=== PATIENT | male | born 2000 | race Two or more races ===

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

== ENCOUNTER 2021-02-26 10:09 | Emergency (ER) | payer MEDICAID, OTHER ==
[~2021-02-26] VITALS: Ht 167.6 cm; Wt 59.0 kg
[2021-02-26 10:38] VITALS: BP 106/55
[2021-02-26] MEDS ORDERED: IBUPROFEN 600 MG TAB PO ONE (11:00)
[2021-02-26] MEDS ORDERED: IBUP600T27 PO (11:03)
== END 2021-02-26 11:14 | disposition home or self-care (01) ==
LOC: ER 10:09
DX: S93.401A Sprain of unspecified ligament of right ankle, initial encounter (principal); Z79.1 Long term (current) use of non-steroidal anti-inflammatories (NSAID); V00.131A Fall from skateboard, initial encounter; Y93.51 Activity, roller skating (inline) and skateboarding; Y92.89 Other specified places as the place of occurrence of the external cause; Y99.8 Other external cause status
CPT/HCPCS: 73610

== ENCOUNTER 2023-07-10 09:41 | Emergency (ER) | payer SELFPAY ==
[~2023-07-10] VITALS: Ht 165.1 cm; Wt 66.2 kg
[~2023-07-10 09:41] MED LIST: IBUP-1454 PO
[2023-07-10 10:11] LABS: Urine Bacteria None Seen /hpf (None Seen)
[2023-07-10 10:14] LABS: Urine Blood Negative /uL (Negative); Urine Clarity Clear (Clear); Urine Protein, UAD Negative (Negative); Urine Specific Gravity 1.001 (1.001-1.035); Urine Urobilinogen Normal (Negative); Urine WBC <1 /hpf (0 - 3)
[2023-07-10 10:17] LABS: Urine Color Yellow (Yellow)
[2023-07-10 10:25] LABS: Amphetamine Screen, Urine Neg (NEGATIVE); Barbiturate Scree,Urine Neg (NEGATIVE); Benzodiazephine Screen, Urine Neg (NEGATIVE); Cannabinoid Screen, Urine Neg (NEGATIVE); Cocaine Screen, Urine Neg (NEGATIVE); Opiate Scree,Urine Neg (NEGATIVE); Phencyclidine Screen, Urine Neg (NEGATIVE)
[2023-07-10 11:14] LABS: Basophils # (auto) 0 10 ^3/uL (0-0.2); Eosinophils # (auto) 0.1 10 ^3/uL (0-0.8); Eosinophils % (auto) 2.3 % (0.0-7.0); Hematocrit 47.2 % (41.0-53.0); Hemoglobin 15.7 g/dL (13.5-17.5); Lymphocytes # (auto) 1.9 10 ^3/uL (0.4-5.4); Lymphocytes % (auto) 37.7 % (10.0-50.0); Mean Corpuscular Hemoglobin 28.9 pg (28.0-32.0); Mean Corpuscular Hgb Conc. 33.4 g/dL (32.0-36.0); Mean Corpuscular Volume 86.6 fL (80.0-100.0); Monocytes # (auto) 0.5 10 ^3/uL (0-1.3); Monocytes % (auto) 9.4 % (0.0-12.0); Neutrophils # (auto) 2.5 10 ^3/uL (1.6-8.6); Neutrophils % (auto) 49.6 % (37.0-80.0); Nucleated Red Blood Cells % 0.2 %; Red Blood Cells 5.45 10^6/uL (4.5-5.90)
[2023-07-10 11:40] LABS: Albumin 5.1 g/dL (3.2-4.8); Alkaline Phosphatase 75 U/L (46-116); Anion Gap 8 (5-15); Aspartate Aminotransferase 15 U/L (13-40); Bilirubin, Total 0.7 mg/dL (0.2-1.0); Blood Alcohol < 3.0 mg/dL (<10); Calcium 10.1 mg/dL (8.5-10.1); Carbon Dioxide 27 mmol/L (20-30); Chloride 104 mmol/L (98-107); Glucose 124 mg/dL (74-106); Potassium 3.5 mmol/L (3.5-5.1); Sodium 139 mmol/L (136-145)
[2023-07-10 11:41] LABS: Total Protein 7.4 g/dL (5.7-8.2)
[2023-07-10 11:48] LABS: Alanine Aminotransferase < 9 U/L (7-40); BUN/Creatinine Ratio 5.1 (10.0-20.0); Blood Urea Nitrogen < 5 mg/dL (9-23)
[2023-07-10] MEDS: IOHEXOL 300 MG/ML 100ML BOTTLE IJ ONE (13:40)
[2023-07-10] MEDS: METOCLOPRAMIDE HCL 10 MG TAB PO ONE (14:30)
[2023-07-10] MEDS: levoFLOXacin 500 MG TAB PO ONE (14:30)
[2023-07-10] MEDS: metroNIDAZOLE 500 MG TAB PO ONE (14:30)
[2023-07-10] MEDS ORDERED: PANT40TA2 PO (14:31)
[2023-07-10] MEDS ORDERED: METO-281 PO (14:31)
[2023-07-10] MEDS ORDERED: CIPR-173 PO (14:31)
[2023-07-10] MEDS ORDERED: METR-344 PO (14:31)
[2023-07-10 16:34] VITALS: BP 107/61; PULSE 69; RESP 18; TEMP 98.7; O2SAT 100
[2023-07-10 17:59] LABS: Magnesium 2.2 mg/dL (1.6-2.6)
[2023-07-10 18:00] LABS: Lipase 43 U/L (12-53)
== END 2023-07-10 16:37 | disposition home or self-care (01) ==
LOC: ER 09:41
DX: K52.9 Noninfective gastroenteritis and colitis, unspecified (principal); Z87.891 Personal history of nicotine dependence; Z79.899 Other long term (current) drug therapy
CPT/HCPCS: 36415; 71045; 74177; 80053; 80307; 80320; 81001; 83690; 83735; 85025; 99285; J8597; Q9967

== ENCOUNTER 2023-12-15 18:40 | Inpatient (IN) | payer MEDICAID ==
[~2023-12-15] VITALS: Ht 165.1 cm; Wt 65.0 kg
[~2023-12-15 18:40] MED LIST changes: +CIPR-173 PO; +METO-281 PO; +METR-344 PO; +PANT40TA2 PO
[2023-12-15 20:00] LABS: Urine Bacteria None Seen /hpf (None Seen)
[2023-12-15 20:45] LABS: Basophils # (auto) 0 10 ^3/uL (0-0.2); Basophils % (auto) 0.5 % (0.0-2.0); Eosinophils # (auto) 0.1 10 ^3/uL (0-0.8); Eosinophils % (auto) 0.9 % (0.0-7.0); Hematocrit 46.8 % (41.0-53.0); Hemoglobin 15.6 g/dL (13.5-17.5); Lymphocytes # (auto) 1.1 10 ^3/uL (0.4-5.4); Lymphocytes % (auto) 14.9 % (10.0-50.0); Mean Corpuscular Hemoglobin 28.7 pg (28.0-32.0); Mean Corpuscular Hgb Conc. 33.4 g/dL (32.0-36.0); Monocytes # (auto) 0.9 10 ^3/uL (0-1.3); Monocytes % (auto) 12.4 % (0.0-12.0); Neutrophils # (auto) 5.3 10 ^3/uL (1.6-8.6); Neutrophils % (auto) 71.3 % (37.0-80.0); Platelet Count (auto) 241 10^3/uL (140-450); Red Blood Cells 5.44 10^6/uL (4.5-5.90); Red Cell Distribution Width 12.7 % (11.8-14.3); White Blood Cell 7.5 10^3/uL (4.4-10.8)
[2023-12-15 20:50] LABS: Urine Blood Negative /uL (Negative); Urine Clarity Clear (Clear); Urine Color Colorless (Yellow); Urine Protein, UAD Negative (Negative); Urine Specific Gravity 1.001 (1.001-1.035); Urine Urobilinogen Normal (Negative); Urine WBC <1 /hpf (0 - 3); Urine pH 6.5 (5.0-9.0)
[2023-12-15 21:04] LABS: Alanine Aminotransferase 16 U/L (7-40); Albumin 4.9 g/dL (3.2-4.8); Alkaline Phosphatase 94 U/L (46-116); Anion Gap 7 (5-15); Aspartate Aminotransferase 13 U/L (13-40); Calcium 9.8 mg/dL (8.7-10.4); Carbon Dioxide 26 mmol/L (20-31); Chloride 107 mmol/L (98-107); Glucose 90 mg/dL (74-106); Lipase 39 U/L (12-53); Potassium 3.7 mmol/L (3.5-5.1); Sodium 140 mmol/L (136-145)
[2023-12-15 21:05] LABS: Bilirubin, Total 0.6 mg/dL (0.2-1.0); Total Protein 7.4 g/dL (5.7-8.2)
[2023-12-15 21:07] LABS: BUN/Creatinine Ratio 4.5 (10.0-20.0); Blood Urea Nitrogen < 5 mg/dL (9-23)
[2023-12-15] MEDS: KETOROLAC TROMETH 30 MG/ML 1ML VIAL IV ONE (22:15)
[2023-12-15] MEDS: SULFAMETH-TRIMETH 80/16MG-ML 10 ML in D5W 5% 250 ML IV ONE (22:15)
[2023-12-15] MEDS ORDERED: HYDROcodone-ACET 5/325MG TAB PO PRN (23:30)
[2023-12-15] MEDS ORDERED: MORPHINE SULFATE INJ 2 MG/ml SYRG IV PRN (23:30)
[2023-12-15] MEDS ORDERED: ACETAMINOPHEN 325 MG TAB PO PRN (23:30)
[2023-12-15] MEDS ORDERED: ONDANSETRON HCL 4 MG/2 ML VIAL IV PRN (23:30)
[2023-12-16] MEDS: methylPREDNISolone SOD SUCC 125 MG/2 ML VL IV ONE (00:45)
[2023-12-16] MEDS: cefTRIAXone 1GM/50ML D5W 50 ML IV ONE (00:46)
[2023-12-16] MEDS: PANTOPRAZOLE 40 MG/10 ML VIAL INJ IV ONE (00:48)
[2023-12-16] MEDS: metroNIDAZOLE 500MG/100ML 100 ML IV ONE (01:19)
[2023-12-16] MEDS: SODIUM CHLORIDE 0.9% 1,000 ML IV ONE (01:33)
[2023-12-16 01:50] VITALS: PULSE 69; RESP 17; O2SAT 98
[2023-12-16 05:35] LABS: COVID19 ANTIGEN SOFIA FIA NEGATIVE (NEGATIVE)
[2023-12-16 06:22] LABS: Basophils # (auto) 0 10 ^3/uL (0-0.2); Basophils % (auto) 0.1 % (0.0-2.0); Eosinophils # (auto) 0 10 ^3/uL (0-0.8); Eosinophils % (auto) 0.1 % (0.0-7.0); Hematocrit 46.9 % (41.0-53.0); Hemoglobin 15.9 g/dL (13.5-17.5); Lymphocytes # (auto) 0.6 10 ^3/uL (0.4-5.4); Lymphocytes % (auto) 7.3 % (10.0-50.0); Mean Corpuscular Hemoglobin 29.2 pg (28.0-32.0); Monocytes # (auto) 0.2 10 ^3/uL (0-1.3); Monocytes % (auto) 1.8 % (0.0-12.0); Neutrophils # (auto) 7.9 10 ^3/uL (1.6-8.6); Neutrophils % (auto) 90.7 % (37.0-80.0); Platelet Count (auto) 229 10^3/uL (140-450); Red Blood Cells 5.45 10^6/uL (4.5-5.90); Red Cell Distribution Width 12.6 % (11.8-14.3); White Blood Cell 8.7 10^3/uL (4.4-10.8)
[2023-12-16 06:30] LABS: Chloride 105 mmol/L (98-107); Potassium 4.3 mmol/L (3.5-5.1); Sodium 139 mmol/L (136-145)
[2023-12-16 06:31] LABS: Anion Gap 9 (5-15); Carbon Dioxide 25 mmol/L (20-31)
[2023-12-16 06:32] LABS: Calcium 10.3 mg/dL (8.7-10.4)
[2023-12-16] MEDS: metroNIDAZOLE 500MG/100ML 100 ML IV SCH (06:34)
[2023-12-16 06:36] LABS: Glucose 120 mg/dL (74-106)
[2023-12-16 06:37] LABS: BUN/Creatinine Ratio 7.1 (10.0-20.0); Blood Urea Nitrogen 7 mg/dL (9-23); Magnesium 2.1 mg/dL (1.6-2.6)
[2023-12-16 08:25] VITALS: BP 94/52; PULSE 74; RESP 16; TEMP 97.9; O2SAT 99
[2023-12-16] MEDS: PANTOPRAZOLE 40 MG/10 ML VIAL INJ IV SCH (11:12)
[2023-12-16 11:59] LABS: Free T3 3.15 pg/mL (2.3-4.2); Free T4 (Free Thyroxine) 1.41 ng/dL (0.89-1.76)
[2023-12-16] MEDS: CYANOCOBALAMIN (B-12) 1000 MCG/1 ML VIAL IM ONE ×2 (12:45→13:06)
[2023-12-16 13:00] VITALS: BP 110/55; PULSE 68; RESP 15; TEMP 97.8; O2SAT 96
[2023-12-16] MEDS: ERGOCALCIFEROL 50,000 UNIT(1.25MG) CAP PO SCH (13:07)
[2023-12-16 16:55] VITALS: BP 110/74; PULSE 76; RESP 17; TEMP 97.7; O2SAT 98
[2023-12-16 20:00] VITALS: PULSE 68; RESP 18; O2SAT 97
[2023-12-16 21:00] VITALS: BP 99/66; PULSE 68; RESP 18; TEMP 97.9; O2SAT 97
[2023-12-16] MEDS: cefTRIAXone 1GM/50ML D5W 50 ML IV SCH (21:00)
[2023-12-17 01:00] VITALS: BP 107/70; PULSE 63; RESP 18; TEMP 98; O2SAT 98
[2023-12-17 01:54] LABS: Amphetamine Screen, Urine Neg (NEGATIVE); Barbiturate Scree,Urine Neg (NEGATIVE); Benzodiazephine Screen, Urine Neg (NEGATIVE); Cannabinoid Screen, Urine Neg (NEGATIVE); Cocaine Screen, Urine Neg (NEGATIVE); Opiate Scree,Urine Neg (NEGATIVE); Phencyclidine Screen, Urine Neg (NEGATIVE)
[2023-12-17 05:00] VITALS: BP 109/73; PULSE 65; RESP 18; TEMP 98; O2SAT 97
[2023-12-17 08:01] LABS: Basophils # (auto) 0 10 ^3/uL (0-0.2); Basophils % (auto) 0.6 % (0.0-2.0); Eosinophils # (auto) 0 10 ^3/uL (0-0.8); Eosinophils % (auto) 0.3 % (0.0-7.0); Hematocrit 41.7 % (41.0-53.0); Hemoglobin 14.2 g/dL (13.5-17.5); Lymphocytes # (auto) 1.8 10 ^3/uL (0.4-5.4); Mean Corpuscular Hemoglobin 29.2 pg (28.0-32.0); Mean Corpuscular Hgb Conc. 34.1 g/dL (32.0-36.0); Mean Corpuscular Volume 85.7 fL (80.0-100.0); Monocytes # (auto) 0.7 10 ^3/uL (0-1.3); Monocytes % (auto) 10.2 % (0.0-12.0); Neutrophils # (auto) 4.4 10 ^3/uL (1.6-8.6); Neutrophils % (auto) 62.9 % (37.0-80.0); Nucleated Red Blood Cells % 0.2 %; Platelet Count (auto) 225 10^3/uL (140-450); Red Blood Cells 4.86 10^6/uL (4.5-5.90); Red Cell Distribution Width 12.6 % (11.8-14.3); White Blood Cell 7.1 10^3/uL (4.4-10.8)
[2023-12-17 08:10] LABS: Anion Gap 6 (5-15); Carbon Dioxide 27 mmol/L (20-31); Chloride 108 mmol/L (98-107); Potassium 3.7 mmol/L (3.5-5.1); Sodium 141 mmol/L (136-145)
[2023-12-17 08:12] LABS: Calcium 9.5 mg/dL (8.7-10.4)
[2023-12-17 08:17] LABS: BUN/Creatinine Ratio 8.2 (10.0-20.0); Blood Urea Nitrogen 8 mg/dL (9-23); Glucose 96 mg/dL (74-106)
[2023-12-17 08:49] VITALS: BP 97/59; PULSE 63; RESP 15; TEMP 97.7; O2SAT 98
[2023-12-17] MEDS: CYANOCOBALAMIN (B-12) 1000 MCG/1 ML VIAL IM SCH (10:00)
[2023-12-17 13:00] VITALS: BP 101/66; PULSE 58; RESP 18; TEMP 98; O2SAT 93
[2023-12-17] MEDS ORDERED: METR-344 PO (16:10)
[2023-12-17] MEDS ORDERED: ERGO1CAP23 PO (16:10)
[2023-12-17] MEDS ORDERED: CYAN-17 PO (16:10)
[2023-12-17] MEDS ORDERED: CEPH250C PO (16:10)
[2023-12-20 13:07] LABS: Saccharomyces cerevisiae IgA <20.0 Units (0.0-24.9)
== END 2023-12-17 16:52 | disposition home or self-care (01) | DRG 248 ==
LOC: ER 18:43 → OVERFLOW 23:32 → CENTRAL 12-16 07:55
PROVIDERS: ADMIT Internal Medicine; ATTEND Internal Medicine
DX: A04.72 Enterocolitis due to Clostridium difficile, not specified as recurrent (principal); K50.00 Crohn's disease of small intestine without complications; E55.9 Vitamin D deficiency, unspecified; E86.0 Dehydration; Z20.822 Contact with and (suspected) exposure to COVID-19; Z83.3 Family history of diabetes mellitus; Z79.899 Other long term (current) drug therapy
CPT/HCPCS: 36415; 74176; 80048; 80053; 80307; 81001; 82270; 82306; 82607; 83036; 83690; 83735; 83986; 84439; 84443; 84481; 85025; 85048; 86256; 86671; 87045; 87426; 87427; 87493; G0378; J1885; J2470; J3490; J7060

== ENCOUNTER 2024-03-06 01:31 | Emergency (ER) | payer MEDICAID ==
[~2024-03-06] VITALS: Ht 157.5 cm; Wt 66.4 kg
[~2024-03-06 01:31] MED LIST changes: +CEPH250C PO; -CIPR-173 PO; +CYAN-17 PO; +ERGO1CAP23 PO; -IBUP-1454 PO; -METO-281 PO; -PANT40TA2 PO
[2024-03-06 01:43] VITALS: BP 125/61; PULSE 83; RESP 20; O2SAT 99
[2024-03-06 02:21] LABS: Urine Bacteria None Seen /hpf (None Seen); Urine WBC None Seen /hpf (0 - 3)
[2024-03-06 02:27] LABS: Urine Blood Negative /uL (Negative); Urine Clarity Clear (Clear); Urine Color Colorless (Yellow); Urine Protein, UAD Negative (Negative); Urine Specific Gravity 1.002 (1.001-1.035); Urine Squamous Epithelial Cell None Seen /hpf (<5); Urine Urobilinogen Normal (Negative)
[2024-03-06 02:42] LABS: Basophils # (auto) 0.1 10 ^3/uL (0-0.2); Basophils % (auto) 1.1 % (0.0-2.0); Eosinophils # (auto) 0.2 10 ^3/uL (0-0.8); Eosinophils % (auto) 2.6 % (0.0-7.0); Hemoglobin 16.3 g/dL (13.5-17.5); Lymphocytes # (auto) 2.6 10 ^3/uL (0.4-5.4); Lymphocytes % (auto) 34.6 % (10.0-50.0); Mean Corpuscular Hemoglobin 28.5 pg (28.0-32.0); Mean Corpuscular Hgb Conc. 33.3 g/dL (32.0-36.0); Mean Corpuscular Volume 85.4 fL (80.0-100.0); Monocytes # (auto) 0.6 10 ^3/uL (0-1.3); Monocytes % (auto) 8.1 % (0.0-12.0); Neutrophils % (auto) 53.6 % (37.0-80.0); Nucleated Red Blood Cells % 0.1 %; Platelet Count (auto) 322 10^3/uL (140-450); Red Blood Cells 5.74 10^6/uL (4.5-5.90); Red Cell Distribution Width 12.1 % (11.8-14.3); White Blood Cell 7.5 10^3/uL (4.4-10.8)
[2024-03-06 02:44] LABS: Alanine Aminotransferase 29 U/L (7-40); Alkaline Phosphatase 85 U/L (46-116); Anion Gap 8 (5-15); Aspartate Aminotransferase 19 U/L (13-40); BUN/Creatinine Ratio 5.8 (10.0-20.0); Bilirubin, Total 0.4 mg/dL (0.2-1.0); Calcium 10.3 mg/dL (8.7-10.4); Carbon Dioxide 28 mmol/L (20-31); Chloride 106 mmol/L (98-107); Glucose 94 mg/dL (74-106); Lipase 41 U/L (12-53); Potassium 3.8 mmol/L (3.5-5.1); Sodium 142 mmol/L (136-145); Total Protein 7.4 g/dL (5.7-8.2)
[2024-03-06] MEDS ORDERED: DICY20TA PO (03:00)
--- NOTE | 2024-03-06 03:00 | ED.PDOC ---
GI ASSESSMENT HPI Comments Patient complaining of right lower quadrant abdominal pain and nausea vomiting which started today. Patient reports a history of IBS. No new foods or medications. Denies any diarrhea no blood in his stool. Nothing makes it better, nothing makes it worse. No recent travel, no one else at home sick. Chief Complaint: Abdominal Pain Time Seen by MD: 01:47 Primary Care Provider: NONE Reviewed Notes: Nurses Notes Allergies: Coded Allergies: NO KNOWN ALLERGIES (Unverified , 07/23/12) Home Meds Active Scripts Metronidazole (Flagyl) 500 Mg Tab, 1 TAB PO TID for 5 Days, #15 TAB Prov:OCTAVIO ZAVALA 12/17/23 Cephalexin (KEFLEX CAPSULE) 250 Mg Cp, 1 CAP PO BID for 5 Days, #28 CAP Prov:OCTAVIO ZAVALA [facility] 12/17/23 Cyanocobalamin (B12) 1,000 Mcg Cap, 1000 MCG PO DAILY for 30 Days, #30 CAP 2 Refills Prov:OCTAVIO ZAVALA [facility] 12/17/23 Ergocalciferol (VITAMIN D 14393 UNIT) 50,000 [place], [address] UNIT PO Q7D for 90 Days, #12 CAP Prov:OCTAVIO ZAVALA [facility] 12/17/23 Information Source: Patient Mode of Arrival: Ambulatory Past Medical History PAST MEDICAL HISTORY: Denies Surgical History: Denies all surgeries Family History Family History: Reviewed,noncontributory to illness Social History Smoker: Non-Smoker Alcohol: Denies ETOH Use Drugs: Denies Drug Use Lives In: Home EENTM: denies: blurred vision, double vision, ear bleeding, ear discharge, ear drainage, ear pain, ear ringing, eye pain, eye redness, hearing loss, mouth pain, mouth swelling, nasal discharge, nose bleeding, nose congestion, nose pain, photophobia, tearing, throat pain, throat swelling, voice changes, others Respiratory: denies: cough, hemoptysis, orthopnea, SOB at rest, shortness of breath, SOB with excertion, stridor, wheezing, others Gastrointestinal: reports: abdominal pain, nausea, vomiting Genitourinary: denies: burning, dysuria, flank pain, frequency, hematuria, incontinence, penile discharge, penile sore, pain, testicle pain, testicle swelling, urgency, others Neurological: denies: dizziness, fainting, headache, left sided numbness, left sided weakness, numbness, paresthesia, pre-existing deficit, right sided numbness, right sided weakness, seizure, speech problems, tingling, tremors, weakness, others Musculoskeletal: denies: back pain, gout, joint pain, joint swelling, muscle pain, muscle stiffness, neck pain, others Integumetry: denies: bruises, change in color, change in hair/nails, dryness, laceration, lesions, lumps, rash, wounds, others Allergic/Immunocompromised: denies: Difficulty Healing, Frequent Infections, Hives, Itching, others Physical Exam General Appearance: No Apparent Distress, Normal HEENT: Normal ENT Inspection, Pharynx Normal, TMs Normal Neck: Full Range of Motion, Non-Tender, Normal, Normal Inspection Respiratory: Chest Non-Tender, Lungs Clear, No Accessory Muscle Use, No Respiratory Distress, Normal Breath Sounds Cardiovascular: No Edema, No JVD, No Murmur, No Gallop, Normal Peripheral Pulses, Regular Rate/Rhythm Breast Exam: Deferred Gastrointestinal: No Organomegaly, Normal Bowel Sounds, RLQ (Tender to palpation), Soft Genitalia: Deferred Pelvic: Deferred Rectal: Deferred Extremities: No calf tenderness, Normal capillary refill, Normal inspection, Normal range of motion, Non-tender, No pedal edema Musculoskeletal : Apperance: Normal Neurologic: Alert, safety investigator II-XII nml as Tested, No Motor Deficits, Normal Affect, Normal Mood, No Sensory Deficits Cerebellar Function: Normal Reflexes: Normal Skin: Dry, Normal Color, Warm Lymphatic: No Adenopathy Was a procedure done? Was a procedure done?: No GI differential Dx Differential Diagnosis: Appendicitis, Bowel Obstruction, Gastritis/PUD, Gastroenteritis X-Ray, Labs, Meds, VS Vital Signs Date Time Temp Pulse Resp B/P (MAP) Pulse Ox O2 Delivery O2 Flow Rate FiO2 03/06/24 01:43 97.7 83 20 125/61 (82) 99 Lab Test 03/06/24 02:15 03/06/24 01:47 Range/Units White Blood Count Pending Red Blood Count Pending Hemoglobin Pending Hematocrit Pending Mean Corpuscular Volume Pending Mean Corpuscular Hemoglobin Pending Mean Corpuscular Hemoglobin Concent Pending Red Cell Distribution Width Pending Platelet Count Pending Mean Platelet Volume Pending Neutrophils (%) (Auto) Pending Lymphocytes (%) (Auto) Pending Monocytes (%) (Auto) Pending Basophils (%) (Auto) Pending Neutrophils # (Auto) Pending Lymphocytes # (Auto) Pending Monocytes # (Auto) Pending Sodium Level Pending Potassium Level Pending Chloride Level Pending Carbon Dioxide Level Pending Anion Gap Pending Blood Urea Nitrogen Pending Creatinine Pending Glomerular Filtration Rate Calc Pending BUN/Creatinine Ratio Pending Serum Glucose Pending Calcium Level Pending Total Bilirubin Pending Aspartate Amino Transferase (AST) Pending Alanine Aminotransferase (ALT) Pending Alkaline Phosphatase Pending Total Protein Pending Albumin Pending Lipase Pending Urine Color Pending Urine Clarity Pending Urine pH Pending Urine Specific [place] Pending Urine Protein Pending Urine Ketones Pending Urine Blood Pending Urine Nitrite Pending Urine Bilirubin Pending Urine Urobilinogen Pending Urine Leukocyte Esterase Pending Urine RBC Pending Urine WBC Pending Urine Squamous Epithelial Cells Pending Urine Bacteria Pending Urine Glucose Pending X-Ray, Labs, Meds, VS Comment Imaging: X-rays and CT scans were reviewed and interpreted by this provider, imaging shows no fractures and no pathological disease. Pending radiology review. Laboratory: Labs reviewed and interpreted by this provider. No significant abnormalities noted. Patient has prior medical visits reviewed. Med reconciliation performed Vital signs reviewed Time of 1ST Reevaluation: 03:00 Reevaluation 1ST: Improved Patient Education/Counseling: Diagnosis, Treatment, Need For Follow Up (Follow up in the next 4-6 hours if symptoms worsen. Follow up in 24 hours if symptoms have not improved.) Family Education/Counseling: Diagnosis, Treatment Departure 1 Departure Time of Disposition: 02:59 Impression: Primary Impression: Colitis Disposition: 01 HOME / SELF CARE / HOMELESS Condition: Fair e-Prescriptions Dicyclomine Hcl (Dicyclomine Hcl) 20 Mg Tab 1 TAB PO TID PRN, #30 TAB 1 Refill Prov: ROSEMARY MILLER 03/06/24 Discharged With: Self Critical Care Note Critical Care Time?: No Stability Stability form required: No Heart Score Heart Score: Heart Score Response (Comments) Value History N/A 0 EKG N/A 0 Age N/A 0 Risk Factors N/A 0 Troponin N/A 0 Total 0 ROSEMARY MILLER Mar 06, 2024 03:00
[2024-03-06 03:07] LABS: Blood Urea Nitrogen 6 mg/dL (9-23)
--- NOTE | 2024-03-06 03:09 | DVH ---
Examination: ABPL CLINICAL INDICATION: RLQ pain COMPARISON: None. CONTRAST USED: None. TECHNIQUE: A plain CT study of the abdomen and pelvis is performed. The examination was performed w ith [address] scan done according to ALARA (As Low as Reasonably Achievable). Multiplana r reconstructions were obtained. FINDINGS: CT ABDOMEN: Lung Base: The evaluation of lung bases demonstrates no focal infiltrates or pleural effusion. Unenhanced Liver: Normal size liver with normal attenuation. No obvious focal lesion in liver. Ther e is no intrahepatic biliary radicle dilatation. Gallbladder appears unremarkable. No intraluminal pathology. The common bile duct is not dilated. Unenhanced Pancreas: The pancreas is normal in size and shape. No focal lesion is seen within. Th e peripancreatic fat-planes are normal. Unenhanced Spleen: The spleen is normal in size and does not show any focal abnormality. A 2.1 cm s plenule at the splenic hilum. Retroperitoneum: Both adrenal glands are normal in size and morphology in this unenhanced CT scan. There is no significant retroperitoneal lymphadenopathy. The kidneys are normal in size. No renal calculus or hydronephrosis. Perinephric spaces are clear. Vessels: Aorta, IVC and the mesenteric vessels cannot be commented in this unenhanced CT scan. Stomach and Bowel: The bowel loops are unremarkable. There is no ascites. Skeletal System: No acute osseous abnormality or focal osseous lesion. CT PELVIS: Appendix is visualized and appears unremarkable. Colon: Large bowel loops are moderately distended with fecal matter. Changes of constipation. No ev idence of diverticulosis or diverticulitis. No inflammatory bowel wall thickening. Bladder: The urinary bladder is unremarkable. Borderline prostatomegaly. Seminal vesicles appear un remarkable. No pelvic lymphadenopathy is identified. No abnormal fluid collection is seen. IMPRESSION: 1. No acute intra-abdominal pathology. No abdominal fat stranding or collection. 2. Appendix, terminal ileum and ileocecal junction appear unremarkable. Gallbladder and pancreas ap pear unremarkable. No evidence of renal or ureteric calculus or hydronephrosis. 3. Large bowel loops are distended with fecal matter. Changes of constipation. No evidence of dive rticulosis or diverticulitis or inflammatory bowel wall thickening. 4. Borderline prostatomegaly. No evidence of inguinal hernia. Electronically Signed 03/06/2024 03:08 Ashley Lau
== END 2024-03-06 05:38 | disposition home or self-care (01) ==
LOC: ER 01:31
DX: K52.9 Noninfective gastroenteritis and colitis, unspecified (principal)
CPT/HCPCS: 36415; 74176; 80053; 81001; 83690; 85025

== ENCOUNTER 2024-05-08 09:17 | Emergency (ER) | payer MEDICAID ==
[~2024-05-08] VITALS: Ht 165.1 cm; Wt 66.9 kg
[~2024-05-08 09:17] MED LIST changes: +DICY20TA PO
--- NOTE | 2024-05-08 10:09 | ED.PDOC ---
GI ASSESSMENT HPI Comments 24 year old male presents to the ED with a chief complaint of abdominal pain onset 1 week. Patient states he has been experiencing LLQ pain radiating to RLQ for the past week, noticed pain worsen today. Patient is also experiencing nausea. Denies any PMHx as well as chest pain, shortness of breath, vomiting, diarrhea, constipation, fever, chills, headache, blurry vision, dysuria. No other symptoms or other modifying factors present at this time. Chief Complaint: Abdominal Pain Time Seen by MD: 10:04 Primary Care Provider: Padmaja Armstrong Notes: Medications, Allergies Allergies: Coded Allergies: NO KNOWN ALLERGIES (Unverified , 07/23/12) Home Meds Active Scripts Pantoprazole Sodium Sesquihydr (Protonix) 40 Mg Tab, 40 MG PO DAILY for 5 Days, #5 TAB Prov:CHILO BURGESS MD 05/08/24 Dicyclomine Hcl (Dicyclomine Hcl) 20 Mg Tab, 1 TAB PO TID PRN, #30 TAB 1 Refill Prov:ROSEMARY MILLER 03/06/24 Metronidazole (Flagyl) 500 Mg Tab, 1 TAB PO TID for 5 Days, #15 TAB Prov:OCTAVIO ZAVALA 12/17/23 Cephalexin (KEFLEX CAPSULE) 250 Mg Cp, 1 CAP PO BID for 5 Days, #28 CAP Prov:OCTAVIO ZAVALA 12/17/23 Cyanocobalamin (B12) 1,000 Mcg Cap, 1000 MCG PO DAILY for 30 Days, #30 CAP 2 Refills Prov:OCTAVIO ZAVALA 12/17/23 Ergocalciferol (VITAMIN D 39721 UNIT) 50,[place], [address] UNIT PO Q7D for 90 Days, #12 CAP Prov:OCTAVIO ZAVALA 12/17/23 Information Source: Patient Mode of Arrival: Ambulatory Timing: Weeks Duration: Since onset Prehospital treatment: None Quality: Aching Vomitus: None Severity: Moderate Recent: None Recent Hx of: None Pain Location: RLQ, LLQ Modifying Factors: Nothing Associated sign and symptoms: Nausea, Abdominal Pain Past Medical History PAST MEDICAL HISTORY: Denies Surgical History: Denies all surgeries Family History Family History: Reviewed,noncontributory to illness Social History Smoker: Other Alcohol: Denies ETOH Use Drugs: Denies Drug Use Lives In: Home Constitutional: denies: chills, diaphoresis, fatigue, fever, malaise, sweats, weakness, others EENTM: denies: blurred vision, double vision, ear bleeding, ear discharge, ear drainage, ear pain, ear ringing, eye pain, eye redness, hearing loss, mouth pain, mouth swelling, nasal discharge, nose bleeding, nose congestion, nose pain, photophobia, tearing, throat pain, throat swelling, voice changes, others Respiratory: denies: cough, hemoptysis, orthopnea, SOB at rest, shortness of breath, SOB with excertion, stridor, wheezing, others Cardiovascular: denies: chest pain, dizzy spells, diaphoresis, Dyspnea on exertion, edema, irregular heart beat, left arm pain, lightheadedness, palpitations, PND, syncope, others Gastrointestinal: reports: abdominal pain; denies: abdomen distended, blood streaked bowels, constipated, diarrhea, dysphagia, difficulty swallowing, hematemesis, melena, nausea, poor appetite, poor fluid intake, rectal bleeding, rectal pain, vomiting, others Genitourinary: denies: burning, dysuria, flank pain, frequency, hematuria, incontinence, penile discharge, penile sore, pain, testicle pain, testicle swelling, urgency, others Neurological: denies: dizziness, fainting, headache, left sided numbness, left sided weakness, numbness, paresthesia, pre-existing deficit, right sided numbness, right sided weakness, seizure, speech problems, tingling, tremors, weakness, others Musculoskeletal: denies: back pain, gout, joint pain, joint swelling, muscle pain, muscle stiffness, neck pain, others Integumetry: denies: bruises, change in color, change in hair/nails, dryness, laceration, lesions, lumps, rash, wounds, others Allergic/Immunocompromised: denies: Difficulty Healing, Frequent Infections, Hives, Itching, others Hematologic/Lymphatic: denies: anemia, blood clots, easy bleeding, easy bruising, swollen glands, others Endocrine: denies: excessive hunger, excessive sweating, excessive thirst, excessive urination, flushing, intolerance to cold, intolerance to heat, unexplained weight gain, unexplained weight loss, others Psychiatric: denies: anxiety, bipolar disorder, depression, hopeless, panic disorder, schizophrenia, sleepless, suicidal, others All Other Systems: Reviewed and Negative Physical Exam General Appearance: Moderate Distress, Normal HEENT: Normal ENT Inspection, Pharynx Normal, TMs Normal Neck: Full Range of Motion, Non-Tender, Normal, Normal Inspection Respiratory: Chest Non-Tender, Lungs Clear, No Accessory Muscle Use, No Respira tory Distress, Normal Breath Sounds Cardiovascular: No Edema, No JVD, No Murmur, No Gallop, Normal Peripheral Pulses, Regular Rate/Rhythm Breast Exam: Deferred Gastrointestinal: No Organomegaly, Non Tender, No Pulsatile Mass, Normal Bowel Sounds, Soft Genitalia: Deferred Pelvic: Deferred Rectal: Deferred Extremities: No calf tenderness, Normal capillary refill, Normal inspection, Normal range of motion, Non-tender, No pedal edema Musculoskeletal : Apperance: Normal Neurologic: Alert, proofing machine operator II-XII nml as Tested, No Motor Deficits, Normal Affect, Normal Mood, No Sensory Deficits Cerebellar Function: Normal Reflexes: Normal Skin: Dry, Normal Color, Warm Peripheral Pulses: 3+ Radial (R), 3+ Radial (L) Lymphatic: No Adenopathy Was a procedure done? Was a procedure done?: No GI differential Dx Differential Diagnosis: Constipation, Diverticular disease, Esophagitis, Gastritis/PUD, Gastroenteritis X-Ray, Labs, Meds, VS Vital Signs Date Time Temp Pulse Resp B/P (MAP) Pulse Ox O2 Delivery O2 Flow Rate FiO2 05/08/24 10:15 76 18 97 Room Air* 0 21 05/08/24 10:14 97.6 76 18 128/81 (97) 99 97.6 05/08/24 09:40 97.7 72 16 121/81 (94) 98 Lab Test 05/08/24 10:08 05/08/24 09:38 Range/Units White Blood Count 7.2 4.4-10.8 10^3/uL Red Blood Count 6.01 H 4.5-5.90 10^6/uL Hemoglobin 17.0 13.5-17.5 g/dL Hematocrit 51.2 41.0-53.0 % Mean Corpuscular Volume 85.2 80.0-100.0 fL Mean Corpuscular Hemoglobin 28.3 28.0-32.0 pg Mean Corpuscular Hemoglobin Concent 33.2 32.0-36.0 g/dL Red Cell Distribution Width 12.9 11.8-14.3 % Platelet Count 258 140-450 10^3/uL Mean Platelet Volume 9.0 6.9-10.8 fL Neutrophils (%) (Auto) 56.0 37.0-80.0 % Lymphocytes (%) (Auto) 33.7 10.0-50.0 % Monocytes (%) (Auto) 8.0 0.0-12.0 % Eosinophils (%) (Auto) 1.7 0.0-7.0 % Basophils (%) (Auto) 0.6 0.0-2.0 % Neutrophils # (Auto) 4.0 1.6-8.6 10 ^3/uL Lymphocytes # (Auto) 2.4 0.4-5.4 10 ^3/uL Monocytes # (Auto) 0.6 0-1.3 10 ^3/uL Eosinophils # (Auto) 0.1 0-0.8 10 ^3/uL Basophils # (Auto) 0 0-0.2 10 ^3/uL Nucleated Red Blood Cells 0.4 % Urine Color Colorless Yellow Urine Clarity Clear Clear Urine pH 6.0 5.0-9.0 Urine Specific [place] 1.001 1.001-1.035 Urine Protein Negative Negative Urine Ketones Negative Negative Urine Blood Negative Negative /uL Urine Nitrite Negative Negative Urine Bilirubin Negative Negative Urine Urobilinogen Normal Negative mg/dL Urine Leukocyte Esterase Negative Negative /uL Urine RBC None seen 0 - 3 /hpf Urine Microscopic WBC < 1 0-3 /HPF Urine Squamous Epithelial Cells None seen <5 /hpf Urine Bacteria None seen None Seen /hpf Urine Glucose Normal Normal mg/dL Urine Opiates Screen Neg NEGATIVE Urine Fentanyl Screen Neg NEGATIVE Urine Barbiturates Screen Neg NEGATIVE Urine Phencyclidine Screen Neg NEGATIVE Urine Amphetamines Screen Neg NEGATIVE Urine Benzodiazepines Screen Neg NEGATIVE Urine Cocaine Screen Neg NEGATIVE Urine Cannabinoids Screen Neg NEGATIVE Patient alert. Complaining of suprapubic discomfort. Vitals stable. Answering all questions. Abdomen is soft nontender. Ambulating without difficulty. No sepsis. No leg swelling. No shortness a breath. No sign of any distress. Was told to drink plenty of fluids. Possible gastritis. Was given prescription of Protonix. Explained to the patient. Was told to follow up with his primary care physician. Was told to come back if there is any problem. Time of Reevaluation: 10:34 Reevaluation 1ST: Improved Time of 2ND Reevaluation: 11:47 Reevaluation 2ND: Improved Patient Education/Counseling: Diagnosis, Treatment, Prognosis Family Education/Counseling: No Family Present Additional Information The following tests were ordered, and results were reviewed by me: CBC, UA, drug screen I discussed treatment and results with medical personnel and: patient Departure 1 Departure Time of Disposition: 11:50 Impression: Primary Impression: Gastritis Qualified Codes: K29.00 - Acute gastritis without bleeding Disposition: HOME / SELF CARE / HOMELESS Condition: Good e-Prescriptions Pantoprazole Sodium Sesquihydr (Protonix) 40 Mg Tab 40 MG PO DAILY for 5 Days, #5 TAB Prov: CHILO BURGESS MD 05/08/24 Discharged With: Self Critical Care Note Critical Care Time?: No Stability Stability form required: No Heart Score Heart Score: Heart Score Response (Comments) Value History N/A 0 EKG N/A 0 Age N/A 0 Risk Factors N/A 0 Troponin N/A 0 Total 0 I personally scribed for CHILO BURGESS MD ([email or web address]) on 05/08/24 at 10:09. Electronically submitted by Estrellita Espinal ([email or web address]). I personally scribed for CHILO BURGESS MD ([email or web address]) on 05/08/24 at 10:51. Electronically submitted by Estrellita Espinal ([email or web address]). CHILO BURGESS MD May 08, 2024 10:09
[2024-05-08 10:15] VITALS: PULSE 76; RESP 18; O2SAT 97
[2024-05-08 10:32] LABS: Urine Bacteria None Seen /hpf (None Seen)
[2024-05-08 10:46] LABS: Urine Blood Negative /uL (Negative); Urine Clarity Clear (Clear); Urine Color Colorless (Yellow); Urine Protein, UAD Negative (Negative); Urine Specific Gravity 1.001 (1.001-1.035); Urine Squamous Epithelial Cell None Seen /hpf (<5); Urine Urobilinogen Normal (Negative)
[2024-05-08 10:47] LABS: Eosinophils # (auto) 0.1 10 ^3/uL (0-0.8); Lymphocytes # (auto) 2.4 10 ^3/uL (0.4-5.4); Lymphocytes % (auto) 33.7 % (10.0-50.0); Monocytes # (auto) 0.6 10 ^3/uL (0-1.3); Nucleated Red Blood Cells % 0.4 %; White Blood Cell 7.2 10^3/uL (4.4-10.8)
[2024-05-08 10:51] LABS: Basophils # (auto) 0 10 ^3/uL (0-0.2); Basophils % (auto) 0.6 % (0.0-2.0); Eosinophils % (auto) 1.7 % (0.0-7.0); Hematocrit 51.2 % (41.0-53.0); Mean Corpuscular Hemoglobin 28.3 pg (28.0-32.0); Mean Corpuscular Hgb Conc. 33.2 g/dL (32.0-36.0); Mean Corpuscular Volume 85.2 fL (80.0-100.0); Platelet Count (auto) 258 10^3/uL (140-450); Red Blood Cells 6.01 10^6/uL (4.5-5.90); Red Cell Distribution Width 12.9 % (11.8-14.3)
[2024-05-08 10:56] LABS: Urine WBC < 1 /HPF (0-3)
[2024-05-08 11:05] LABS: Amphetamine Screen, Urine Neg (NEGATIVE)
[2024-05-08 11:12] LABS: Barbiturate Scree,Urine Neg (NEGATIVE); Benzodiazephine Screen, Urine Neg (NEGATIVE); Cannabinoid Screen, Urine Neg (NEGATIVE); Cocaine Screen, Urine Neg (NEGATIVE); Opiate Scree,Urine Neg (NEGATIVE); Phencyclidine Screen, Urine Neg (NEGATIVE)
[2024-05-08] MEDS ORDERED: PANT40TA2 PO (11:51)
[2024-05-08 12:00] VITALS: BP 121/86; PULSE 83; RESP 18; TEMP 97.8; O2SAT 95
== END 2024-05-08 12:03 | disposition home or self-care (01) ==
LOC: ER 09:17
DX: K29.70 Gastritis, unspecified, without bleeding (principal); Z79.899 Other long term (current) drug therapy
CPT/HCPCS: 36415; 80307; 81001; 85025

== ENCOUNTER 2024-09-01 21:21 | Emergency (ER) | payer MEDICAID ==
[~2024-09-01] VITALS: Ht 152.4 cm; Wt 68.4 kg
[~2024-09-01 21:21] MED LIST changes: +PANT40TA2 PO
--- NOTE | 2024-09-01 22:08 | ED.PDOC ---
GI ASSESSMENT HPI Comments 24y M who presents to the ED for chief complaint of abdominal pain. Pt states he has been having R sided abdominal pain for the past 1x week. Pt states the pain is intermittent, non-radiating, rating the pain 6/10, achy in nature, with no associated exacerbating or relieving factors. Pt has associated dizziness but otherwise denies any other symptoms at this time. Pt states he has seen GI specialist recently and states he had IV contrast CT scan of abdomen and states the results came back inconclusive. Pt otherwise denies any other symptoms at this time. Pt denies any sick contacts or changes to diet. Time Seen by MD: 22:06 Primary Care Provider: Padmaja Armstrong Notes: Nurses Notes, Medications, Allergies Allergies: Coded Allergies: NO KNOWN ALLERGIES (Unverified , 07/23/12) Home Meds Active Scripts Pantoprazole Sodium Sesquihydr (Protonix) 40 Mg Tab, 40 MG PO DAILY for 5 Days, #5 TAB Prov:CHILO BURGESS MD 05/08/24 Dicyclomine Hcl (Dicyclomine Hcl) 20 Mg Tab, 1 TAB PO TID PRN, #30 TAB 1 Refill Prov:ROSEMARY MILLER 03/06/24 Metronidazole (Flagyl) 500 Mg Tab, 1 TAB PO TID for 5 Days, #15 TAB Prov:OCTAVIO ZAVALA 12/17/23 Cephalexin (KEFLEX CAPSULE) 250 Mg Cp, 1 CAP PO BID for 5 Days, #28 CAP Prov:OCTAVIO ZAVALA 12/17/23 Cyanocobalamin (B12) 1,000 Mcg Cap, 1000 MCG PO DAILY for 30 Days, #30 CAP 2 Refills Prov:OCTAVIO ZAVALA 12/17/23 Ergocalciferol (VITAMIN D 14846 UNIT) 50,000 [place], [address] UNIT PO Q7D for 90 Days, #12 CAP Prov:OCTAVIO ZAVALA 12/17/23 Information Source: Patient Mode of Arrival: Ambulatory Duration: Intermittent Prehospital treatment: None Quality: Aching, Cramping Vomitus: None Recent: Other (Abdominal pain concerns) Pain Location: Diffuse, RLQ Associated sign and symptoms: Abdominal Pain Past Medical History PAST MEDICAL HISTORY: Denies Past Medical History (Other): Recent abdominal pain concerns Surgical History: Denies all surgeries Family History Family History: Reviewed,noncontributory to illness Social History Smoker: Other Alcohol: Denies ETOH Use Drugs: Denies Drug Use Lives In: Home Constitutional: denies: chills, diaphoresis, fatigue, fever, malaise, sweats, weakness, others EENTM: denies: blurred vision, double vision, ear bleeding, ear discharge, ear drainage, ear pain, ear ringing, eye pain, eye redness, hearing loss, mouth pain, mouth swelling, nasal discharge, nose bleeding, nose congestion, nose pain, photophobia, tearing, throat pain, throat swelling, voice changes, others Respiratory: denies: cough, hemoptysis, orthopnea, SOB at rest, shortness of breath, SOB with excertion, stridor, wheezing, others Cardiovascular: denies: chest pain, dizzy spells, diaphoresis, Dyspnea on exertion, edema, irregular heart beat, left arm pain, lightheadedness, palpitat ions, PND, syncope, others Gastrointestinal: reports: abdominal pain, nausea, vomiting; denies: abdomen distended, blood streaked bowels, constipated, diarrhea, dysphagia, difficulty swallowing, hematemesis, melena, poor appetite, poor fluid intake, rectal bleeding, rectal pain, others Genitourinary: denies: burning, dysuria, flank pain, frequency, hematuria, incontinence, penile discharge, penile sore, pain, testicle pain, testicle swelling, urgency, others Neurological: reports: dizziness; denies: fainting, headache, left sided numbness, left sided weakness, numbness, paresthesia, pre-existing deficit, right sided numbness, right sided weakness, seizure, speech problems, tingling, tremors, weakness, others Musculoskeletal: denies: back pain, gout, joint pain, joint swelling, muscle pain, muscle stiffness, neck pain, others Integumetry: denies: bruises, change in color, change in hair/nails, dryness, laceration, lesions, lumps, rash, wounds, others Allergic/Immunocompromised: denies: Difficulty Healing, Frequent Infections, Hives, Itching, others Hematologic/Lymphatic: denies: anemia, blood clots, easy bleeding, easy bruising, swollen glands, others Endocrine: denies: excessive hunger, excessive sweating, excessive thirst, excessive urination, flushing, intolerance to cold, intolerance to heat, unexplained weight gain, unexplained weight loss, others Psychiatric: denies: anxiety, bipolar disorder, depression, hopeless, panic disorder, schizophrenia, sleepless, suicidal, others All Other Systems: Reviewed and Negative Physical Exam General Appearance: Moderate Distress ([id number] distress due to right lower quadrant pain.), Normal HEENT: Normal ENT Inspection, Pharynx Normal, TMs Normal Neck: Full Range of Motion, Non-Tender, Normal, Normal Inspection Respiratory: Chest Non-Tender, Lungs Clear, No Accessory Muscle Use, No Respiratory Distress, Normal Breath Sounds Cardiovascular: No Edema, No JVD, No Murmur, No Gallop, Normal Peripheral Pulses, Regular Rate/Rhythm Breast Exam: Deferred Gastrointestinal: Other (Right lower quadrant was relatively unremarkable. Pain was nondescript and did not resolve rebound pain. Abdomen was reasonably soft.) Genitalia: Deferred Pelvic: Deferred Rectal: Deferred Extremities: No calf tenderness, Normal capillary refill, Normal inspection, Normal range of motion, Non-tender, No pedal edema Musculoskeletal : Apperance: Normal Neurologic: Alert, No Motor Deficits, Normal Affect, Normal Mood, No Sensory Deficits Cerebellar Function: Normal Reflexes: Normal Skin: Dry, Normal Color, Warm Lymphatic: No Adenopathy Was a procedure done? Was a procedure done?: No GI differential Dx Differential Diagnosis: Appendicitis, Esophagitis, Gastritis/PUD, Gastroenteritis, Inflammatory BD, Pancreatitis, Food Poisoning, Bacterial, Viral Other Differential Diagnosis enteritis, X-Ray, Labs, Meds, VS Vital Signs Date Time Temp Pulse Resp B/P (MAP) Pulse Ox O2 Delivery O2 Flow Rate FiO2 09/01/24 23:07 70 18 97 Room Air 09/01/24 23:07 97.8 70 18 129/71 (90) 97 97.8 09/01/24 22:04 97.6 75 16 120/66 (84) 98 97.6 Lab Test 09/01/24 22:10 Range/Units White Blood Count 7.4 4.4-10.8 10^3/uL Red Blood Count 5.62 4.5-5.90 10^6/uL Hemoglobin 16.0 13.5-17.5 g/dL Hematocrit 47.2 41.0-53.0 % Mean Corpuscular Volume 84.1 80.0-100.0 fL Mean Corpuscular Hemoglobin 28.5 28.0-32.0 pg Mean Corpuscular Hemoglobin Concent 33.9 32.0-36.0 g/dL Red Cell Distribution Width 12.3 11.8-14.3 % Platelet Count 261 140-450 10^3/uL Mean Platelet Volume 8.7 6.9-10.8 fL Neutrophils (%) (Auto) 54.9 37.0-80.0 % Lymphocytes (%) (Auto) 32.0 10.0-50.0 % Monocytes (%) (Auto) 9.0 0.0-12.0 % Eosinophils (%) (Auto) 2.7 0.0-7.0 % Basophils (%) (Auto) 1.4 0.0-2.0 % Neutrophils # (Auto) 4.1 1.6-8.6 10 ^3/uL Lymphocytes # (Auto) 2.4 0.4-5.4 10 ^3/uL Monocytes # (Auto) 0.7 0-1.3 10 ^3/uL Eosinophils # (Auto) 0.2 0-0.8 10 ^3/uL Basophils # (Auto) 0.1 0-0.2 10 ^3/uL Nucleated Red Blood Cells 0.0 % Sodium Level 139 136-145 mmol/L Potassium Level 4.0 3.5-5.1 mmol/L Chloride Level 104 98-107 mmol/L Carbon Dioxide Level 27 20-31 mmol/L Anion Gap 8 5-15 Blood Urea Nitrogen 8 L 9-23 mg/dL Creatinine 1.10 0.700-1.30 mg/dL Glomerular Filtration Rate Calc 96 >90 mL/min BUN/Creatinine Ratio 7.3 L 10.0-20.0 Serum Glucose 94 74-106 mg/dL Calcium Level 9.6 8.7-10.4 mg/dL Lipase 41 12-53 U/L Current Medications Medications (Trade) Dose Ordered Sig/Juan F Route Start Time Stop Time Status Last Admin Ketorolac Tromethamine (Toradol Injection) 30 mg ONCE ONCE IM 09/01/24 22:15 09/01/24 22:16 DC 09/01/24 23:02 Acetaminophen/ Hydrocodone Bitart ([place] 5/325MG Tab) 1 tab ONCE ONCE PO 09/01/24 22:15 09/01/24 22:16 DC 09/01/24 23:03 X-Ray, Labs, Meds, VS Comment All studies performed the ED were evaluated by me personally. Laboratories were relatively unremarkable for any systemic process. Patient responded well to medication. Unknown cause of the patient's abdominal pain concerns. Patient needs to continue follow up with customer supply coordinator and primary care provider for evaluation of intra-abdominal concerns. Time of 1ST Reevaluation: :58 Reevaluation 1ST: Improved Consultation: PCP, GI Patient Education/Counseling: Diagnosis, Treatment Family Education/Counseling: Diagnosis, Treatment, No Family Present SEPSIS Sepsis Screen Recent Procedure: No On Antibiotic Therapy: No Respiratory Rate >20: No Heart Rate >90: No Temp<36 C (96.8 F) or >38.3 C: No SBP <90 or MAP <65 mmHG: No New Acute Mental Status Change: No Is the patient on CPAP, BIPAP,: No Physician Orders Urinalysis (09/01/24 22:05) Right Lower Quad (09/01/24 22:05) Vital Signs Date Time Temp Pulse Resp B/P (MAP) Pulse Ox O2 Delivery O2 Flow Rate FiO2 09/01/24 23:07 70 18 97 Room Air 09/01/24 23:07 97.8 70 18 129/71 (90) 97 97.8 09/01/24 22:04 97.6 75 16 120/66 (84) 98 97.6 Laboratory Tests Test 09/01/24 22:10 White Blood Count 7.4 10^3/uL (4.4-10.8) Medications Medications Dose Ordered Sig/Juan F Route Start Time Stop Time Status Last Admin Dose Admin Acetaminophen/ Hydrocodone Bitart 1 tab ONCE ONCE PO 09/01/24 22:15 09/01/24 22:16 DC 09/01/24 23:03 Ketorolac Tromethamine 30 mg ONCE ONCE IM 09/01/24 22:15 09/01/24 22:16 DC 09/01/24 23:02 Departure 1 Departure Time of Disposition: 01:58 Impression: Primary Impression: Abdominal pain Disposition: HOME / SELF CARE / HOMELESS Condition: Stable Additional Instructions: Advised patient utilize medication as needed and additionally, patient should continue follow up with the customer supply coordinator and primary care provider for evaluation of intra abdominal pain concerns. e-Prescriptions Dicyclomine Hcl (BENTYL CAPSULE) 10 Mg Cp 1 CAP PO Q6HPRN, #20 CAP 0 Refills Prov: CORBY SWANN PAC 09/02/24 Ibuprofen (Ibuprofen) 600 Mg Tab 1 TAB PO Q6HP PRN, #20 TAB Prov: CORBY SWANN PAC 09/02/24 Discharged With: Self, Relative (Mother) Critical Care Note Critical Care Time?: No Stability Stability form required: No Heart Score Heart Score: Heart Score Response (Comments) Value History N/A 0 EKG N/A 0 Age N/A 0 Risk Factors N/A 0 Troponin N/A 0 Total 0 I personally scribed for CORBY SWANN PAC ([email or web address]) on 09/01/24 at 22:08. Electronically submitted by Gina Napoles ([email or web address]). CORBY SWANN PAC Sep 01, 2024 22:08
[2024-09-01 22:19] LABS: Basophils # (auto) 0.1 10 ^3/uL (0-0.2); Basophils % (auto) 1.4 % (0.0-2.0); Eosinophils # (auto) 0.2 10 ^3/uL (0-0.8); Eosinophils % (auto) 2.7 % (0.0-7.0); Hematocrit 47.2 % (41.0-53.0); Lymphocytes # (auto) 2.4 10 ^3/uL (0.4-5.4); Mean Corpuscular Hemoglobin 28.5 pg (28.0-32.0); Mean Corpuscular Hgb Conc. 33.9 g/dL (32.0-36.0); Mean Corpuscular Volume 84.1 fL (80.0-100.0); Monocytes # (auto) 0.7 10 ^3/uL (0-1.3); Neutrophils # (auto) 4.1 10 ^3/uL (1.6-8.6); Neutrophils % (auto) 54.9 % (37.0-80.0); Platelet Count (auto) 261 10^3/uL (140-450); Red Blood Cells 5.62 10^6/uL (4.5-5.90); Red Cell Distribution Width 12.3 % (11.8-14.3); White Blood Cell 7.4 10^3/uL (4.4-10.8)
[2024-09-01 22:31] LABS: Chloride 104 mmol/L (98-107); Sodium 139 mmol/L (136-145)
[2024-09-01 22:32] LABS: Anion Gap 8 (5-15); Carbon Dioxide 27 mmol/L (20-31)
[2024-09-01 22:33] LABS: Calcium 9.6 mg/dL (8.7-10.4)
[2024-09-01 22:37] LABS: Glucose 94 mg/dL (74-106)
[2024-09-01 22:38] LABS: BUN/Creatinine Ratio 7.3 (10.0-20.0); Lipase 41 U/L (12-53)
--- NOTE | 2024-09-01 22:39 | DVH ---
RIGHT UPPER QUADRANT ABDOMINAL ULTRASOUND CLINICAL HISTORY: Right lower quadrant COMPARISON: None TECHNIQUE: Grayscale and color Doppler ultrasound imaging of the right upper quadrant is performed. FINDINGS: Limited sonographic evaluation of the abdomen for the assessment of possible appendicitis. The appen myrtle was not visualized. No free fluid. IMPRESSION: 1. The appendix was not visualized. If there is persistent clinical concern for acute appendicitis, d edicated CT is suggested in further assessment. Location 48
[2024-09-01 22:46] LABS: Blood Urea Nitrogen 8 mg/dL (9-23)
[2024-09-01] MEDS: KETOROLAC TROMETH 60MG/2ML VIAL IM ONE (23:02)
[2024-09-01] MEDS: HYDROcodone-ACET 5/325MG TAB PO ONE (23:03)
[2024-09-02] MEDS ORDERED: DICY10CA PO (02:00)
[2024-09-02] MEDS ORDERED: IBUP-1454 PO (02:00)
[2024-09-02 02:14] LABS: Urine Bacteria None Seen /hpf (None Seen)
[2024-09-02 02:26] VITALS: BP 113/64; PULSE 61; RESP 14; TEMP 97.9; O2SAT 96
[2024-09-02 02:44] LABS: Urine Blood Negative /uL (Negative); Urine Clarity Clear (Clear); Urine Color Colorless (Yellow); Urine Protein, UAD Negative (Negative); Urine Specific Gravity 1.003 (1.001-1.035); Urine Squamous Epithelial Cell None Seen /hpf (<5); Urine Urobilinogen Normal (Negative)
== END 2024-09-02 02:30 | disposition home or self-care (01) ==
LOC: ER 21:21
DX: R10.84 Generalized abdominal pain (principal)
CPT/HCPCS: 36415; 76705; 80048; 81001; 83690; 85025; 96372; 99285; J1885

== ENCOUNTER 2024-11-20 16:21 | Emergency (ER) | payer MEDICAID ==
[~2024-11-20] VITALS: Ht 167.6 cm; Wt 68.6 kg
[~2024-11-20 16:21] MED LIST changes: +DICY10CA PO; +IBUP-1454 PO
[2024-11-20 16:25] VITALS: BP 141/80; PULSE 66; RESP 16; TEMP 97.7; O2SAT 100
[2024-11-20 17:35] LABS: Hematocrit 46.6 % (41.0-53.0); Hemoglobin 16.0 g/dL (13.5-17.5); Mean Corpuscular Hemoglobin 28.7 pg (28.0-32.0); Mean Corpuscular Volume 83.7 fL (80.0-100.0); Nucleated Red Blood Cells % 0.0 %
--- NOTE | 2024-11-20 17:48 | DVH ---
Exam: CT CT AB PEL WO CON-NO ORAL OR IV History: abd pain, diarrhea Comparison Study: None TECHNIQUE: Multidetector CT of the abdomen and pelvis without IV contrast. Axial, coronal and sagitta l multiplanar reformats were obtained from the axial data set by the technologist. Radiation Dose Information: CT Dose: CTDI volume is 7.52 mGy. Dose-length product is 416.43 mGy*cm FINDINGS: The lung bases are clear. Partially visualized heart is unremarkable. Liver, spleen, gallbladder, pancreas and adrenal glands are unremarkable. Kidneys, ureters and urinary bladder unremarkable. Prostate measures 3.3 x 4.2 x 3.3 cm. Stomach is unremarkable. Mild wall Thickening of proximal small bowel loops. The remainder of the sm all bowel loops unremarkable. Appendix is stable. Of the distal esophagus. Small to moderate amount o f fecal material within the colon. No evidence of intraperitoneal free air or free fluid. No evidence of aortic aneurysm. No significant lymphadenopathy. The soft tissues unremarkable. No evidence of acute osseous abnormalities. IMPRESSION: Mild wall thickening of proximal Small bowel loops which may be due to inadequate distention/enteriti s. Small to moderate amount of fecal material within the colon. Mild distal rectal wall thickening which may be due to inadequate distention/mild proctitis.
--- NOTE | 2024-11-20 17:52 | ED.PDOC ---
GI ASSESSMENT HPI Comments HPI: 24 year old male presents to the ED with a chief complaint of constipation onset 2 days. Patient states he has been experiencing constipation for the past 2 days, last bowel movement was 30 minutes prior to ED arrival, dark brown. Patient has been experiencing chronic RLQ pain for the past 2 years, has been seen by PCP, GI specialist, has had multiple CT scans with IV and oral contrast with no abnormal findings. He has appointment with GI specialist February 2025. Denies melena, blood in stool, diarrhea, nausea, vomiting, chest pain, dizziness, headache, numbness/tingling. No other symptoms or modifying factors present at this time. Initial Vitals BP: 141/80 HR: 66 RR: 16 O2: 100% Temp: 97.7 F Past Medical History: Chronic RLQ pain Past Surgical History: Denies Social History: Denies ETOH, smoking, and drug use. Medications: Omeprazole , dicyclomine, probiotics Allergies: NKDA HPI: Poor Historian. REVIEW OF SYSTEMS: CONSTITUTIONAL: Denies acute: fever, diaphoresis, chills, generalized weakness. HEAD: Denies acute: headache, photophobia Eyes: Denies acute: Double vision, vision loss, eye pain, eye discharge. EARS: Denies acute: tinnitus, hearing loss, ear discharge, ear pain, THROAT: Denies acute: sore throat, swelling, difficulty swallowing , pain with swallowing, change in voice. NECK: Denies acute: neck pain, neck swelling, stiff neck. HEART: Denies acute : chest pain, palpitations, LUNGS: Denies acute: SOB, wheezing, cough, hemoptysis ABDOMEN: Denies acute: Nausea, Vomiting, diarrhea, melena , hematemesis, hematochezia SKIN: Denies acute: rash, redness, lesions, itchiness. EXTREMITIES: Denies acute: calf pain, numbness, tingling, weakness, denies pain in extremity. Denies acute: Low back pain. Neuro: Denies acute: focal neurological deficit, motor or sensory focal neurological de ficit, tremors, seizure like activity, confusion, dizziness, change in mental status, loss of bowel or bladder function, cauda equina like symptoms. : Denies acute: dysuria, hematuria, flank pain, increase in urinary frequency. PSYCH: Denies acute: hallucination, suicidal ideation, homicidal ideation. PHYSICAL EXAM: General: -----no---acute distress, awake and alert. Head: normocephalic, atraumatic. Neck: supple, trachea is midline, no swelling. Throat: Normal phonation. Eyes:, no erythema, no purulent discharge, no proptosis, no icterus. Heart: regular rate, regular rhythm, no significant murmur appreciated. Lungs: no apparent respiratory distress, Able to speak in full sentences. No wheezing, no rhonchi, no crackles. No stridors Clear to auscultation bilaterally. Abdomen: Minimal right lower quadrant tender to palpation, non distended, soft, no guarding, no rebound, + bowel sounds. Neuro: Awake, Alert, oriented to name, self, situation, follows commands GCS=15. Speech is normal. Skin: no petechia, no purpura, no cyanosis, non-pale, not jaundice. Lower extremities: --no - Pitting edema no deformity, no focal swelling, no calf TTP. Makes eye contact. moves all four extremities. Face: no apparent facial droop. Ambulating in the ED independently. ED COURSE: DISCLAIMER: This medical document was created using an electronic medical record system with voice recognition software and computerized dictation system. Although this document has been carefully reviewed, there might still be some phonetic and typographical errors. Occasional wrong-word or "sound-alike" substitutions may have occurred due to the inherent limitations of voice recognition software. These areas are purely typographical due to imperfections of the software programs and do not reflect any compromise in the patient's medical care. Please read the chart carefully and recognize, using context, where these substitutions have occurred. Chief Complaint: Abdominal Pain Time Seen by MD: 17:35 Primary Care Provider: Padmaja Reviewed Notes: Medications, Allergies Allergies: Coded Allergies: NO KNOWN ALLERGIES (Unverified , 07/23/12) Home Meds Active Scripts Ciprofloxacin Hcl (Cipro) 500 Mg Tab, 500 MG PO BID for 7 Days, #14 TAB Prov:DEBO WILSON DO 11/20/24 Dicyclomine Hcl (BENTYL CAPSULE) 10 Mg Cp, 1 CAP PO Q6HPRN, #20 CAP 0 Refills Prov:CORBY SWANN PAC 09/02/24 Ibuprofen (Ibuprofen) 600 Mg Tab, 1 TAB PO Q6HP PRN, #20 TAB Prov:CORBY SWANN PAC 09/02/24 Pantoprazole Sodium Sesquihydr (Protonix) 40 Mg Tab, 40 MG PO DAILY for 5 Days, #5 TAB Prov:CHILO BURGESS MD 05/08/24 Dicyclomine Hcl (Dicyclomine Hcl) 20 Mg Tab, 1 TAB PO TID PRN, #30 TAB 1 Refill Prov:ROSEMARY MILLER 03/06/24 Metronidazole (Flagyl) 500 Mg Tab, 1 TAB PO TID for 5 Days, #15 TAB Prov:OCTAVIO ZAVALA 12/17/23 Cephalexin (KEFLEX CAPSULE) 250 Mg Cp, 1 CAP PO BID for 5 Days, #28 CAP Prov:OCTAVIO ZAVALA 12/17/23 Cyanocobalamin (B12) 1,000 Mcg Cap, 1000 MCG PO DAILY for 30 Days, #30 CAP 2 Refills Prov:OCTAVIO ZAVALA 12/17/23 Ergocalciferol (VITAMIN D 30894 UNIT) 50,000 [place], [address] UNIT PO Q7D for 90 Days, #12 CAP Prov:OCTAVIO ZAVALA 12/17/23 Information Source: Patient Mode of Arrival: Ambulatory Timing: Days Duration: Since onset Prehospital treatment: None Vomitus: None Severity: Moderate Recent: None Recent Hx of: None Pain Location: RLQ Modifying Factors: Nothing Associated sign and symptoms: Constipation, Abdominal Pain Past Medical History PAST MEDICAL HISTORY: Denies Surgical History: Denies all surgeries Family History Family History: Reviewed,noncontributory to illness Social History Smoker: Other Alcohol: Denies ETOH Use Drugs: Denies Drug Use Lives In: Home Was a procedure done? Was a procedure done?: No GI differential Dx Differential Diagnosis: Other (DDX include but not limited to diverticulitis, colitis, gastroenteritis, acute abdomen, SBO, enteritis, constipation, volvulus, appendicitis, Gallbladder disease, choledocolithiasis, ascending cholangitis, pancreatitis, intraAbdominal mass/neoplasm, hepatitis, UTI, pylonephritis, kidney stone, aneurysm, dissection, Inflammatory bowel disease, gastroparesis, ischemic bowel.) Other Differential Diagnosis DDX include Diverticulitis, colitis, gastroenteritis, acute abdomen, bowel obstruction, enteritis, constipation, volvulus, , intraAbdominal mass/neoplasm, Inflammatory bowel disease, ischemic bowel, gastroparesis, narcotics abuse/dependency, fecal impaction, low fiber intake. X-Ray, Labs, Meds, VS Vital Signs Date Time Temp Pulse Resp B/P (MAP) Pulse Ox O2 Delivery O2 Flow Rate FiO2 11/20/24 16:25 97.7 66 16 141/80 100 97.7 Lab Test 11/20/24 18:43 11/20/24 17:09 11/20/24 17:06 11/20/24 16:45 Range/Units Stool for White Cells None seen White Blood Count 6.5 4.4-10.8 10^3/uL Red Blood Count 5.56 4.5-5.90 10^6/uL Hemoglobin 16.0 13.5-17.5 g/dL Hematocrit 46.6 41.0-53.0 % Mean Corpuscular Volume 83.7 80.0-100.0 fL Mean Corpuscular Hemoglobin 28.7 28.0-32.0 pg Mean Corpuscular Hemoglobin Concent 34.3 32.0-36.0 g/dL Red Cell Distribution Width 12.5 11.8-14.3 % Platelet Count 264 140-450 10^3/uL Mean Platelet Volume 8.9 6.9-10.8 fL Neutrophils (%) (Auto) 56.4 37.0-80.0 % Lymphocytes (%) (Auto) 32.1 10.0-50.0 % Monocytes (%) (Auto) 8.3 0.0-12.0 % Eosinophils (%) (Auto) 2.3 0.0-7.0 % Basophils (%) (Auto) 0.9 0.0-2.0 % Neutrophils # (Auto) 3.7 1.6-8.6 10 ^3/uL Lymphocytes # (Auto) 2.1 0.4-5.4 10 ^3/uL Monocytes # (Auto) 0.5 0-1.3 10 ^3/uL Eosinophils # (Auto) 0.1 0-0.8 10 ^3/uL Basophils # (Auto) 0.1 0-0.2 10 ^3/uL Nucleated Red Blood Cells 0.0 % Lactic Acid Level 1.0 0.4-2.0 mmol/L Sodium Level 141 136-145 mmol/L Potassium Level 3.7 3.5-5.1 mmol/L Chloride Level 104 98-107 mmol/L Carbon Dioxide Level 28 20-31 mmol/L Anion Gap 9 5-15 Blood Urea Nitrogen 6 L 9-23 mg/dL Creatinine 1.01 0.700-1.30 mg/dL Glomerular Filtration Rate Calc 106 >90 mL/min BUN/Creatinine Ratio 5.9 L 10.0-20.0 Serum Glucose 90 74-106 mg/dL Calcium Level 9.5 8.7-10.4 mg/dL Total Bilirubin 0.5 0.2-1.0 mg/dL Aspartate Amino Transferase (AST) 21 13-40 U/L Alanine Aminotransferase (ALT) 23 7-40 U/L Alkaline Phosphatase 74 46-116 U/L Total Protein 7.3 5.7-8.2 g/dL Albumin 4.8 3.2-4.8 g/dL Lipase 42 12-53 U/L Urine Color Colorless Yellow Urine Clarity Clear Clear Urine pH 6.5 5.0-9.0 Urine Specific [place] 1.003 1.001-1.035 Urine Protein Negative Negative Urine Ketones Negative Negative Urine Blood Negative Negative /uL Urine Nitrite Negative Negative Urine Bilirubin Negative Negative Urine Urobilinogen Normal Negative mg/dL Urine Leukocyte Esterase Negative Negative /uL Urine RBC None seen 0 - 3 /hpf Urine Microscopic WBC 0-3 /HPF Urine Squamous Epithelial Cells None seen <5 /hpf Urine Bacteria None seen None Seen /hpf Urine Glucose Normal Normal mg/dL Urine Opiates Screen Neg NEGATIVE Urine Fentanyl Screen Neg NEGATIVE Urine Barbiturates Screen Neg NEGATIVE Urine Phencyclidine Screen Neg NEGATIVE Urine Amphetamines Screen Neg NEGATIVE Urine Benzodiazepines Screen Neg NEGATIVE Urine Cocaine Screen Neg NEGATIVE Urine Cannabinoids Screen Neg NEGATIVE Microbiology Date/Time Source Procedure Growth Status 11/20/24 18:43 Stool Stool Culture - Preliminary Resulted 11/20/24 18:43 Stool Shiga Toxin I & II - Final Resulted 11/20/24 18:43 Stool Clostridium difficile Toxin Assay - Final Resulted [facility] [id number] [place] [id number] Ph: [phone] DIAGNOSTIC IMAGING Diagnostic Imaging Report : [id number] Signed PATIENT: XIAO RODRIGUEZCCT: [id number] UNIT: [id number] : 2000 LOC: ER ROOM / BED: / AGE / SEX: 24 / M ADM STATUS: REG ER SERVICE 1645 ORDERING PHYSICIAN: DEBO WILSON DO PROCEDURE(s): ABPL - CT AB PEL WO CON-NO ORAL OR IV REASON: abd pain, diarrhea ORDER NUMBER(s): [id number], ACCESSION NUMBER(s): [id number] Exam: CT CT AB PEL WO CON-NO ORAL OR IV History: abd pain, diarrhea Comparison Study: None TECHNIQUE: Multidetector CT of the abdomen and pelvis without IV contrast. Axial, coronal and sagittal multiplanar reformats were obtained from the axial data set by the technologist. Radiation Dose Information: CT Dose: CTDI volume is 7.52 mGy. Dose-length product is 416.43 mGy*cm FINDINGS: The lung bases are clear. Partially visualized heart is unremarkable. Liver, spleen, gallbladder, pancreas and adrenal glands are unremarkable. Kidneys, ureters and urinary bladder unremarkable. Prostate measures 3.3 x 4.2 x 3.3 cm. Stomach is unremarkable. Mild wall Thickening of proximal small bowel loops. The remainder of the small bowel loops unremarkable. Appendix is stable. Of the distal esophagus. Small to moderate amount of fecal material within the colon. No evidence of intraperitoneal free air or free fluid. No evidence of aortic aneurysm. No significant lymphadenopathy. The soft tissues unremarkable. No evidence of acute osseous abnormalities. IMPRESSION: Mild wall thickening of proximal Small bowel loops which may be due to inadequate distention/enteritis. Small to moderate amount of fecal material within the colon. Mild distal rectal wall thickening which may be due to inadequate distention/mild proctitis. ATED BY: EVELYN MALDONADO DO DICTATED DATE/TIME: 11/20/241744 SIGNED BY: EVELYN MALDONADO DO SIGNED DATE/TIME: 11/20/241744 CC: Time of 1ST Reevaluation: 18:05 Reevaluation 1ST: Unchanged Patient Education/Counseling: Diagnosis, Treatment Family Education/Counseling: No Family Present Comments MDM: patient presented with the above HPI.---abdominal pain---workup was initiated. patient was found with the above mentioned diagnosis. the following medications were ordered: please refer to order lists of meds and tests obtained by myself Dr. Wilson. Patient ED course and VS have been stabilized. Patient has been reassessed in the ED and remained in a stable condition. Pertinent incidental findings were discussed with the patient and/or family. Patient/family voices understanding and is agreeable with plan. Patient has been observed in the ED adequate length of time to insure improvement/stability. Escalation of care considered: Consideration of escalation to observation or admission Patient's CT scan suggestive of possible enteritis/proctitis. Patient was sent home with antibiotics. Patient was DISCHARGED home in a stable condition. All the reports of any imaging studies that were ordered by myself were reviewed by myself. Departure 1 Departure Time of Disposition: 19:49 Impression: Primary Impression: Right lower quadrant abdominal pain Additional Impressions: Enteritis Constipation Disposition: HOME / SELF CARE / HOMELESS Condition: Stable Additional Instructions: Additional instructions: Please read all instructions provided in this packet carefully. You MUST follow-up with your primary care/family doctor in 1 to 2 days. If you are unable to see your primary care/family doctor, please return to our emergency room for re-assessment and re-evaluation in 1 to 2 days. Return to the emergency room here in our facility or to the nearest ER [facility] if your symptoms change or worsen. CONSULTATIONS: you MUST Follow-up for consultation as soon as possible with: -gastroenterology in 1-2 days. Please call for appointment. You MUST call the consultants office yourself to make an appointment. You may need to arrange that through your insurance and/or your primary/family doctor. If you are unable to see the loan consultant in 1 to 2 days, you must return to our emergency room (or any other ER of your choice) for re-assessment and re- evaluation. Adequate fluid hydration. Although you have been discharged from the Emergency Department, this does not mean that you have a "clean bill of health". No definitive diagnosis for your symptoms has been made today. It is possible that you are in the process of developing a serious illness. This is why you must return to the ED without fail if any new or worsening symptoms develop. Increase fiber intake. Liquid diet in next 72 hours. Below is a copy of your radiological report for follow up: [facility] [id number] [facility] [address] Ph: [phone] DIAGNOSTIC IMAGING Diagnostic Imaging Report : [id number] Signed PATIENT: MICHAEL RODRIGUEZ ACCT: [id number] UNIT: [id number] : 2000 LOC: ER ROOM / BED: / AGE / SEX: 24 / M ADM STATUS: REG ER SERVICE 1645 ORDERING PHYSICIAN: DEBO WILSON DO PROCEDURE(s): ABPL - CT AB PEL WO CON-NO ORAL OR IV REASON: abd pain, diarrhea ORDER NUMBER(s): [id number], ACCESSION NUMBER(s): [id number] Exam: CT CT AB PEL WO CON-NO ORAL OR IV History: abd pain, diarrhea Comparison Study: None TECHNIQUE: Multidetector CT of the abdomen and pelvis without IV contrast. Axial, coronal and sagittal multiplanar reformats were obtained from the axial data set by the technologist. Radiation Dose Information: CT Dose: CTDI volume is 7.52 mGy. Dose-length product is 416.43 mGy*cm FINDINGS: The lung bases are clear. Partially visualized heart is unremarkable. Liver, spleen, gallbladder, pancreas and adrenal glands are unremarkable. Kidneys, ureters and urinary bladder unremarkable. Prostate measures 3.3 x 4.2 x 3.3 cm. Stomach is unremarkable. Mild wall Thickening of proximal small bowel loops. The remainder of the small bowel loops unremarkable. Appendix is stable. Of the distal esophagus. Small to moderate amount of fecal material within the colon. No evidence of intraperitoneal free air or free fluid. No evidence of aortic aneurysm. No significant lymphadenopathy. The soft tissues unremarkable. No evidence of acute osseous abnormalities. IMPRESSION: Mild wall thickening of proximal Small bowel loops which may be due to inadequate distention/enteritis. Small to moderate amount of fecal material within the colon. Mild distal rectal wall thickening which may be due to inadequate distention/mild proctitis. ATED BY: EVELYN MALDONADO DO DICTATED DATE/TIME: 11/20/241744 SIGNED BY: EVELYN MALDONADO DO SIGNED DATE/TIME: 11/20/241744 CC: e-Prescriptions Ciprofloxacin Hcl (Cipro) 500 Mg Tab 500 MG PO BID for 7 Days, #14 TAB Prov: DEBO WILSON DO 11/20/24 Discharged With: Self Critical Care Note Critical Care Time?: No I personally scribed for DEBO WILSON DO ([email or web address]) on 11/20/24 at 17:52. Elect ronically submitted by Estrellita Espinal ([email or web address]). I personally scribed for DEBO WILSON DO ([email or web address]) on 11/20/24 at 18:21. Electronically submitted by Estrellita Espinal ([email or web address]). DEBO WILSON DO Nov 20, 2024 17:52
[2024-11-20 17:53] LABS: Alanine Aminotransferase 23 U/L (7-40); Albumin 4.8 g/dL (3.2-4.8); Alkaline Phosphatase 74 U/L (46-116); Anion Gap 9 (5-15); BUN/Creatinine Ratio 5.9 (10.0-20.0); Blood Urea Nitrogen 6 mg/dL (9-23); Calcium 9.5 mg/dL (8.7-10.4); Carbon Dioxide 28 mmol/L (20-31); Chloride 104 mmol/L (98-107); Glucose 90 mg/dL (74-106); Lipase 42 U/L (12-53); Potassium 3.7 mmol/L (3.5-5.1); Sodium 141 mmol/L (136-145); Total Protein 7.3 g/dL (5.7-8.2)
[2024-11-20 17:54] LABS: Bilirubin, Total 0.5 mg/dL (0.2-1.0)
[2024-11-20] MEDS ORDERED: CIPR-173 PO (19:51)
[2024-11-20 20:02] LABS: Urine Protein, UAD Negative (Negative)
[2024-11-20 20:13] LABS: Amphetamine Screen, Urine Neg (NEGATIVE); Barbiturate Scree,Urine Neg (NEGATIVE); Benzodiazephine Screen, Urine Neg (NEGATIVE); Cannabinoid Screen, Urine Neg (NEGATIVE); Cocaine Screen, Urine Neg (NEGATIVE); Opiate Scree,Urine Neg (NEGATIVE); Phencyclidine Screen, Urine Neg (NEGATIVE)
== END 2024-11-21 00:21 | disposition home or self-care (01) ==
LOC: ER 16:21
DX: R10.31 Right lower quadrant pain (principal); K52.9 Noninfective gastroenteritis and colitis, unspecified; K59.00 Constipation, unspecified; Z79.899 Other long term (current) drug therapy
CPT/HCPCS: 36415; 74176; 80053; 80307; 81001; 83605; 83690; 85025; 85048; 87045; 87177; 87427; 87493

== ENCOUNTER 2024-12-22 10:48 | Emergency (ER) | payer MEDICAID ==
[~2024-12-22] VITALS: Ht 167.6 cm; Wt 70.8 kg
[~2024-12-22 10:48] MED LIST changes: +CIPR-173 PO
--- NOTE | 2024-12-22 11:44 | ED.PDOC ---
GI ASSESSMENT HPI Comments A 24 YEAR OLD MALE PRESENTS TO THE ED WITH COMPLAINT OF RIGHT LOWER QUADRANT ABDOMINAL PAIN. PATIENT STATES HE HAS BEEN EXPERIENCING RIGHT LOWER QUADRANT ABDOMINAL PAIN OFF AND ON FOR THE PAST 2 YEARS WITH HIS PAIN STARTING AGAIN OVER THE LAST 3 DAYS. PATIENT NOTES THAT HIS PAIN OCCASIONALLY RADIATES TO HIS LOWER BACK. PATIENT ALSO NOTES THAT HE CAME TO THIS ED FOR THIS COMPLAINT [address] A [address] SCAN AND LABS WERE DONE WHICH REVEALED POSSIBLE ENTERITIS. PATIENT DENIES DYSURIA, FLANK PAIN, HEMATURIA, FEVER, CHILLS, SHORTNESS OF BREATH, CHEST PAIN, HEADACHE, OR OTHER COMPLAINTS. NO OTHER SYMPTOMS OR MODIFYING FACTORS AT THIS TIME. PATIENT IS ALERT, ORIENTED X 4, AND HAS STEADY GAIT. Chief Complaint: Abdominal Pain Time Seen by MD: 11:01 Primary Care Provider: Padmaja Armstrong Notes: Nurses Notes, Medications, Allergies Allergies: Coded Allergies: NO KNOWN ALLERGIES (Unverified , 07/23/12) Home Meds Active Scripts Ciprofloxacin Hcl (Cipro) 500 Mg Tab, 1 TAB PO BID, #20 TAB Prov:FELY PRECIADO 12/22/24 Ciprofloxacin Hcl (Cipro) 500 Mg Tab, 500 MG PO BID for 7 Days, #14 TAB Prov:DEBO WILSON DO 11/20/24 Dicyclomine Hcl (BENTYL CAPSULE) 10 Mg Cp, 1 CAP PO Q6HPRN, #20 CAP 0 Refills Prov:CORBY SWANN PAC 09/02/24 Ibuprofen (Ibuprofen) 600 Mg Tab, 1 TAB PO Q6HP PRN, #20 TAB Prov:CORBY SWANN PAC 09/02/24 Pantoprazole Sodium Sesquihydr (Protonix) 40 Mg Tab, 40 MG PO DAILY for 5 Days, #5 TAB Prov:CHILO BURGESS MD 05/08/24 Dicyclomine Hcl (Dicyclomine Hcl) 20 Mg Tab, 1 TAB PO TID PRN, #30 TAB 1 Refill Prov:ROSEMARY MILLER 03/06/24 Metronidazole (Flagyl) 500 Mg Tab, 1 TAB PO TID for 5 Days, #15 TAB Prov:OCTAVIO ZAVALA 12/17/23 Cephalexin (KEFLEX CAPSULE) 250 Mg Cp, 1 CAP PO BID for 5 Days, #28 CAP Prov:OCTAVIO ZAVALA 12/17/23 Cyanocobalamin (B12) 1,000 Mcg Cap, 1000 MCG PO DAILY for 30 Days, #30 CAP 2 Refills Prov:STACI MGNOOCTAVIO RESIDENT 12/17/23 Ergocalciferol (VITAMIN D 24911 UNIT) 50,000 [place], [address] UNIT PO Q7D for 90 Days, #12 CAP Prov:OCTAVIO ZAVALA RESIDENT 12/17/23 Information Source: Patient Mode of Arrival: Ambulatory Timing: Days Duration: Since onset, Days Prehospital treatment: None Quality: Aching, Cramping Vomitus: Food Particles Stool: Normal Severity: Moderate Recent: None Recent Hx of: None Pain Location: RLQ Modifying Factors: Nothing Associated sign and symptoms: Nausea, Vomiting, Abdominal Pain Past Medical History PAST MEDICAL HISTORY: Denies Surgical History: Denies all surgeries Family History Family History: Reviewed,noncontributory to illness Social History Smoker: Other Alcohol: Denies ETOH Use Drugs: Denies Drug Use Lives In: Home Constitutional: denies: chills, diaphoresis, fatigue, fever, malaise, sweats, weakness, others EENTM: denies: blurred vision, double vision, ear bleeding, ear discharge, ear drainage, ear pain, ear ringing, eye pain, eye redness, hearing loss, mouth pain, mouth swelling, nasal discharge, nose bleeding, nose congestion, nose pain, photophobia, tearing, throat pain, throat swelling, voice changes, others Respiratory: denies: cough, hemoptysis, orthopnea, SOB at rest, shortness of breath, SOB with excertion, stridor, wheezing, others Cardiovascular: denies: chest pain, dizzy spells, diaphoresis, Dyspnea on exertion, edema, irregular heart beat, left arm pain, lightheadedness, palpitations, PND, syncope, others Gastrointestinal: reports: abdominal pain (RIGHT LOWER QUADRANT ABDOMINAL PAIN), nausea, vomiting; denies: abdomen distended, blood streaked bowels, constipated, diarrhea, dysphagia, difficulty swallowing, hematemesis, melena, poor appetite, poor fluid intake, rectal bleeding, rectal pain, others Genitourinary: denies: burning, dysuria, flank pain, frequency, hematuria, incontinence, penile discharge, penile sore, pain, testicle pain, testicle swelling, urgency, others Neurological: denies: dizziness, fainting, headache, left sided numbness, left sided weakness, numbness, paresthesia, pre-existing deficit, right sided numbness, right sided weakness, seizure, speech problems, tingling, tremors, weakness, others Musculoskeletal: reports: back pain; denies: gout, joint pain, joint swelling, muscle pain, muscle stiffness, neck pain, others Integumetry: denies: bruises, change in color, change in hair/nails, dryness, laceration, lesions, lumps, rash, wounds, others Allergic/Immunocompromised: denies: Difficulty Healing, Frequent Infections, Hives, Itching, others Hematologic/Lymphatic: denies: anemia, blood clots, easy bleeding, easy bruising, swollen glands, others Endocrine: denies: excessive hunger, excessive sweating, excessive thirst, excessive urination, flushing, intolerance to cold, intolerance to heat, unexplained weight gain, unexplained weight loss, others Psychiatric: denies: anxiety, bipolar disorder, depression, hopeless, panic disorder, schizophrenia, sleepless, suicidal, others All Other Systems: Reviewed and Negative Physical Exam General Appearance: No Apparent Distress, Normal HEENT: Normal ENT Inspection, PERRL/EOMI, Pharynx Normal, TMs Normal Neck: Full Range of Motion, Non-Tender, Normal, Normal Inspection Respiratory: Chest Non-Tender, Lungs Clear, No Accessory Muscle Use, No Respiratory Distress, Normal Breath Sounds Cardiovascular: No Edema, No JVD, No Murmur, No Gallop, Normal Peripheral Pulses, Regular Rate/Rhythm Breast Exam: Deferred Gastrointestinal: No Organomegaly, No Pulsatile Mass, Normal Bowel Sounds, RLQ, Soft, Tenderness (RIGHT LOWER ABD, NO GUARDING AND REBOUND TENDERNESS. ) Genitalia: Deferred Pelvic: Deferred Rectal: Deferred Extremities: No calf tenderness, Normal capillary refill, Normal inspection, Normal range of motion, Non-tender, No pedal edema Musculoskeletal : Apperance: Normal Neurologic: Alert, needle loom tender II-XII nml as Tested, No Motor Deficits, Normal Affect, Normal Mood, No Sensory Deficits Cerebellar Function: Normal Reflexes: Normal Skin: Dry, Normal Color, Warm Peripheral Pulses: 2+ carotid (R), 2+ carotid (L) Lymphatic: No Adenopathy Was a procedure done? Was a procedure done?: No GI differential Dx Differential Diagnosis: Appendicitis, Constipation, Diverticular disease, Gastritis/PUD, UTI, Bacterial, Viral, Kidney Stone X-Ray, Labs, Meds, VS Vital Signs Date Time Temp Pulse Resp B/P (MAP) Pulse Ox O2 Delivery O2 Flow Rate FiO2 12/22/24 10:51 98.4 64 18 127/76 98 98.4 Lab Test 12/22/24 11:50 Range/Units White Blood Count 6.4 4.4-10.8 10^3/uL Red Blood Count 5.46 4.5-5.90 10^6/uL Hemoglobin 15.4 13.5-17.5 g/dL Hematocrit 46.2 41.0-53.0 % Mean Corpuscular Volume 84.6 80.0-100.0 fL Mean Corpuscular Hemoglobin 28.2 28.0-32.0 pg Mean Corpuscular Hemoglobin Concent 33.4 32.0-36.0 g/dL Red Cell Distribution Width 12.6 11.8-14.3 % Platelet Count 253 140-450 10^3/uL Mean Platelet Volume 8.8 6.9-10.8 fL Neutrophils (%) (Auto) 61.6 37.0-80.0 % Lymphocytes (%) (Auto) 27.9 10.0-50.0 % Monocytes (%) (Auto) 7.8 0.0-12.0 % Eosinophils (%) (Auto) 1.8 0.0-7.0 % Basophils (%) (Auto) 0.9 0.0-2.0 % Neutrophils # (Auto) 3.9 1.6-8.6 10 ^3/uL Lymphocytes # (Auto) 1.8 0.4-5.4 10 ^3/uL Monocytes # (Auto) 0.5 0-1.3 10 ^3/uL Eosinophils # (Auto) 0.1 0-0.8 10 ^3/uL Basophils # (Auto) 0.1 0-0.2 10 ^3/uL Nucleated Red Blood Cells 0.0 % Sodium Level 143 136-145 mmol/L Potassium Level 4.2 3.5-5.1 mmol/L Chloride Level 105 98-107 mmol/L Carbon Dioxide Level 29 20-31 mmol/L Anion Gap 9 5-15 Blood Urea Nitrogen 8 L 9-23 mg/dL Creatinine 1.03 0.700-1.30 mg/dL Glomerular Filtration Rate Calc 103 >90 mL/min BUN/Creatinine Ratio 7.8 L 10.0-20.0 Serum Glucose 91 74-106 mg/dL Calcium Level 9.7 8.7-10.4 mg/dL CLINICAL HISTORY: RIGHT LOWER ABD PAIN TECHNIQUE: CT of the abdomen and pelvis was performed without IV contrast. This exam was performed according to our departmental dose optimization program. Up-to-date CT equipment and radiation dose reduction techniques are utilized as appropriate. CTDI 8 DLP 404 COMPARISON: CT CT AB PEL WO CON-NO ORAL OR IV on DOS: 11/20/24, CT CT AB PEL WO CON-NO ORAL OR IV on DOS: 03/06/24, CT CT AB PEL WO CON-NO ORAL OR IV on DOS: 12/15/23, CT CT AB PEL WITH IV CON ONLY on DOS: 07/10/23 FINDINGS: Abdomen/Pelvis: The spleen, pancreas, adrenal glands, kidneys, gallbladder, liver, and prostate gland are grossly unremarkable. The bladder is not well distended and therefore not well evaluated. The abdominal aorta is normal in course and caliber. There are no significant atherosclerotic calcifications. There is no free intraperitoneal air or fluid. There is no enlarged abdominal pelvic lymph node. There is no small bowel wall thickening or dilatation. The appendix is normal. There is scattered mild and moderate moderate colonic wall thickening. Other: The imaged lower thorax is unremarkable. No acute osseous abnormality is evident. Impression: Scattered mild and moderate colonic wall thickening, favor colitis. [employer] DICTATED BY: CLEMENTE GOODE MD DICTATED DATE/TIME: 12/22/24 1209 SIGNED BY: CLEMENTE GOODE MD SIGNED DATE/TIME: 12/22/24 1438 CC: X-Ray, Labs, Meds, VS Comment EXTERNAL MEDICAL RECORDS REVIEWED: [NONE] INDEPENDENT HISTORIANS: [NONE] SOCIAL DETERMINANTS OF HEALTH: [NONE] LABS ORDERED: CBC, BMP REVIEWED AND INTERPRETED RESULTS: NORMAL IMAGING ORDERED: CT ABD/PEL TREATMENTS ORDERED: NONE PROCEDURES PERFORMED: NONE CRITICAL CARE TIME: NONE I HAVE DISCUSSED THE PATIENT WITH THE ATTENDING PHYSICIAN DR. BURGESS AND HE AGREES WITH THE PATIENT'S PLAN OF CARE AND DISPOSITION. BASED ON HISTORY OF PRESENT ILLNESS, AND PHYSICAL EXAM, PATIENT WILL BE DISCHARGED HOME. DISCUSSED PLAN FOR DISCHARGE HOME WITH RX [CIPRO 500 MG AND FLAGYL 500 MG]. MEDICATION WARNINGS GIVEN. SHARED DECISION MAKING: DISCUSSED WITH PATIENT THAT THEIR WORKUP WAS NORMAL. PATIENT INSTRUCTED TO FOLLOW UP WITH PRIMARY CARE PROVIDER IN 1-2 DAYS FOR RE- EVALUATION OF SYMPTOMS. PATIENT VERBALIZES UNDERSTANDING TO RETURN TO ED FOR NEW OR WORSENING SYMPTOMS OR IF FOLLOW UP WITH PCP CANNOT BE OBTAINED. PATIENT FEELS COMFORTABLE GOING HOME AT THIS TIME. ALL QUESTIONS ADDRESSED AT TIME OF DISCHARGE. Images Reviewed?: Images reviewed and evaluated by me Time of 1ST Reevaluation: 14:45 Reevaluation 1ST: Improved Patient Education/Counseling: Diagnosis, Treatment, Need For Follow Up Family Education/Counseling: Diagnosis, Treatment, Need For Follow Up Medical Screening: No EMC Exist At This Time SEPSIS Sepsis Screen Date sepsis recognized/suspect: Dec 22, 2024 Time Sepsis recognized/suspect: 1054 Recent Procedure: No On Antibiotic Therapy: No Respiratory Rate >20: No Heart Rate >90: No Temp<36 C (96.8 F) or >38.3 C: No SBP <90 or MAP <65 mmHG: No New Acute Mental Status Change: No Is the patient on CPAP, BIPAP,: No Physician Orders Ct Ab Pel Wo Con-No Oral Or Iv (12/22/24 11:37) Vital Signs Date Time Temp Pulse Resp B/P (MAP) Pulse Ox O2 Delivery O2 Flow Rate FiO2 12/22/24 10:51 98.4 64 18 127/76 98 98.4 Laboratory Tests Test 12/22/24 11:50 White Blood Count 6.4 10^3/uL (4.4-10.8) Departure 1 Departure Time of Disposition: 14:45 Impression: Primary Impression: Acute colitis Additional Impression: Acute exacerbation of chronic abdominal pain Disposition: 01 HOME / SELF CARE / HOMELESS Condition: Stable Additional Instructions: FOLLOW-UP WITH PCP IN 1 TO 2 DAYS. TAKE MEDICATIONS PRESCRIBED. RETURN TO ED FOR ANY NEW OR WORSENING SYMPTOMS. e-Prescriptions Metronidazole (Flagyl) 500 Mg Tab 1 TAB PO BID, #14 TAB Prov: FELY PRECIADO 12/22/24 Ciprofloxacin Hcl (Cipro) 500 Mg Tab 1 TAB PO BID, #20 TAB Prov: FELY PRECIADO 12/22/24 Discharged With: Self Critical Care Note Critical Care Time?: No Stability Stability form required: No I personally scribed for FELY PRECIADO ([email or web address]) on 12/22/24 at 11:44. E lectronically submitted by Varghese Wilson ([email or web address]). I personally scribed for FELY PRECIADO ([email or web address]) on 12/22/24 at 14:42. E lectronically submitted by Varghese Wilson ([email or web address]). FELY PRECIADO Dec 22, 2024 11:44
[2024-12-22 12:09] LABS: Hematocrit 46.2 % (41.0-53.0); Hemoglobin 15.4 g/dL (13.5-17.5); Mean Corpuscular Hemoglobin 28.2 pg (28.0-32.0); Mean Corpuscular Volume 84.6 fL (80.0-100.0); Nucleated Red Blood Cells % 0.0 %
[2024-12-22 12:14] LABS: Chloride 105 mmol/L (98-107); Potassium 4.2 mmol/L (3.5-5.1); Sodium 143 mmol/L (136-145)
[2024-12-22 12:15] LABS: Carbon Dioxide 29 mmol/L (20-31)
[2024-12-22 12:16] LABS: Calcium 9.7 mg/dL (8.7-10.4)
[2024-12-22 12:20] LABS: Glucose 91 mg/dL (74-106)
[2024-12-22 12:21] LABS: Anion Gap 9 (5-15); BUN/Creatinine Ratio 7.8 (10.0-20.0); Blood Urea Nitrogen 8 mg/dL (9-23)
--- NOTE | 2024-12-22 14:38 | DVH ---
CLINICAL HISTORY: RIGHT LOWER ABD PAIN TECHNIQUE: CT of the abdomen and pelvis was performed without IV contrast. This exam was performed according to our departmental dose optimization program. Up-to-date CT equipment and radiation dose reduction techniques are utilized as appropriate. CTDI 8 DLP 404 COMPARISON: CT CT AB PEL WO CON-NO ORAL OR IV on DOS: 11/20/24, CT CT AB PEL WO CON-NO ORAL OR IV on DOS: 03/06/24, CT CT AB PEL WO CON-NO ORAL OR IV on DOS: 12/15/23, CT CT AB PEL WITH IV CON ONLY on DOS: 07/10/23 FINDINGS: Abdomen/Pelvis: The spleen, pancreas, adrenal glands, kidneys, gallbladder, liver, and prostate gland are grossly unremarkable. The bladder is not well distended and therefore not well evaluated. The abdominal aorta is normal in course and caliber. There are no significant atherosclerotic calcifications. There is no free intraperitoneal air or fluid. There is no enlarged abdominal pelvic lymph node. There is no small bowel wall thickening or dilatation. The appendix is normal. There is scattered mild and moderate moderate colonic wall thickening. Other: The imaged lower thorax is unremarkable. No acute osseous abnormality is evident. Impression: Scattered mild and moderate colonic wall thickening, favor colitis. [employer] [facility]
[2024-12-22] MEDS ORDERED: CIPR-173 PO (14:43)
[2024-12-22 14:44] VITALS: BP 117/74; PULSE 63; RESP 16; TEMP 97.4; O2SAT 100
[2024-12-22] MEDS ORDERED: METR-344 PO (14:47)
== END 2024-12-22 14:48 | disposition home or self-care (01) ==
LOC: ER 10:48
DX: K52.9 Noninfective gastroenteritis and colitis, unspecified (principal); G89.29 Other chronic pain; F17.200 Nicotine dependence, unspecified, uncomplicated; Z79.899 Other long term (current) drug therapy
CPT/HCPCS: 36415; 74176; 80048; 85025

== ENCOUNTER 2025-01-31 10:07 | Emergency (ER) | payer MEDICAID ==
[~2025-01-31] VITALS: Ht 167.6 cm; Wt 69.5 kg
--- NOTE | 2025-01-31 10:42 | ED.PDOC ---
History of Present Illness HPI Comments 24M presents to the ER w/ the c/c of ABD Pain. Pt reports on having had on/off RLQ pain for the past 2 years. Pt notes on lifting heavy objects at work. Denies any symptoms at this time. Patient denies any CP, SOB, dizziness, numbness, weakness, tingling, fever, chills, or recent fall. Chief Complaint: Abdominal Pain Time Seen by MD: 10:45 Primary Care Provider: Padmaja Armstrong Notes: Nurses Notes, Medications, Allergies Allergies: Coded Allergies: NO KNOWN ALLERGIES (Unverified , 07/23/12) Home Meds Active Scripts Metronidazole (Flagyl) 500 Mg Tab, 1 TAB PO BID, #14 TAB Prov:FELY PRECIADO 12/22/24 Ciprofloxacin Hcl (Cipro) 500 Mg Tab, 1 TAB PO BID, #20 TAB Prov:FELY PRECIADO 12/22/24 Ciprofloxacin Hcl (Cipro) 500 Mg Tab, 500 MG PO BID for 7 Days, #14 TAB Prov:DEBO WILSON DO 11/20/24 Dicyclomine Hcl (BENTYL CAPSULE) 10 Mg Cp, 1 CAP PO Q6HPRN, #20 CAP 0 Refills Prov:CORBY SWANN PAC 09/02/24 Ibuprofen (Ibuprofen) 600 Mg Tab, 1 TAB PO Q6HP PRN, #20 TAB Prov:CORBY SWANN PAC 09/02/24 Pantoprazole Sodium Sesquihydr (Protonix) 40 Mg Tab, 40 MG PO DAILY for 5 Days, #5 TAB Prov:CHILO BURGESS MD 05/08/24 Dicyclomine Hcl (Dicyclomine Hcl) 20 Mg Tab, 1 TAB PO TID PRN, #30 TAB 1 Refill Prov:ROSEMARY BLOUNT 03/06/24 Metronidazole (Flagyl) 500 Mg Tab, 1 TAB PO TID for 5 Days, #15 TAB Prov:OCTAVIO ZAVALA RESIDENT 12/17/23 Cephalexin (KEFLEX CAPSULE) 250 Mg Cp, 1 CAP PO BID for 5 Days, #28 CAP Prov:OCTAVIO ZAVALA RESIDENT 12/17/23 Cyanocobalamin (B12) 1,000 Mcg Cap, 1000 MCG PO DAILY for 30 Days, #30 CAP 2 Refills Prov:OCTAVIO ZAVALA 12/17/23 Ergocalciferol (VITAMIN D 18124 UNIT) 50,000 [place], [address] UNIT PO Q7D for 90 Days, #12 CAP Prov:STACI JNOESOCTAVIO RESIDENT 12/17/23 Information Source: Patient Mode of Arrival: Ambulatory Severity: Moderate Timing: Other (2 years) Duration: Since onset Prehospital treatment: None Past Medical History PAST MEDICAL HISTORY: Denies Surgical History: Denies all surgeries Family History Family History: Reviewed,noncontributory to illness, Unknown Social History Smoker: Other (Vape) Alcohol: Rarely Drugs: Denies Drug Use Lives In: Home Constitutional: denies: chills, diaphoresis, fatigue, fever, malaise, sweats, weakness, others EENTM: denies: blurred vision, double vision, ear bleeding, ear discharge, ear drainage, ear pain, ear ringing, eye pain, eye redness, hearing loss, mouth pain, mouth swelling, nasal discharge, nose bleeding, nose congestion, nose pain, photophobia, tearing, throat pain, throat swelling, voice changes, others Respiratory: denies: cough, hemoptysis, orthopnea, SOB at rest, shortness of breath, SOB with excertion, stridor, wheezing, others Cardiovascular: denies: chest pain, dizzy spells, diaphoresis, Dyspnea on exertion, edema, irregular heart beat, left arm pain, lightheadedness, palpitations, PND, syncope, others Gastrointestinal: reports: abdominal pain; denies: abdomen distended, blood streaked bowels, constipated, diarrhea, dysphagia, difficulty swallowing, hematemesis, melena, nausea, poor appetite, poor fluid intake, rectal bleeding, rectal pain, vomiting, others Genitourinary: denies: burning, dysuria, flank pain, frequency, hematuria, incontinence, penile discharge, penile sore, pain, testicle pain, testicle swelling, urgency, others Neurological: denies: dizziness, fainting, headache, left sided numbness, left sided weakness, numbness, paresthesia, pre-existing deficit, right sided numbness, right sided weakness, seizure, speech problems, tingling, tremors, weakness, others Musculoskeletal: denies: back pain, gout, joint pain, joint swelling, muscle pain, muscle stiffness, neck pain, others Integumetry: denies: bruises, change in color, change in hair/nails, dryness, laceration, lesions, lumps, rash, wounds, others Allergic/Immunocompromised: denies: Difficulty Healing, Frequent Infections, Hives, Itching, others Hematologic/Lymphatic: denies: anemia, blood clots, easy bleeding, easy bruising, swollen glands, others Endocrine: denies: excessive hunger, excessive sweating, excessive thirst, excessive urination, flushing, intolerance to cold, intolerance to heat, unexplained weight gain, unexplained weight loss, others Psychiatric: denies: anxiety, bipolar disorder, depression, hopeless, panic disorder, schizophrenia, sleepless, suicidal, others All Other Systems: Reviewed and Negative Physical Exam General Appearance: Moderate Distress, Normal HEENT: Normal ENT Inspection, Pharynx Normal, TMs Normal Neck: Full Range of Motion, Non-Tender, Normal, Normal Inspection Respiratory: Chest Non-Tender, Lungs Clear, No Accessory Muscle Use, No Respiratory Distress, Normal Breath Sounds Cardiovascular: No Edema, No JVD, No Murmur, No Gallop, Normal Peripheral Pulses, Regular Rate/Rhythm Breast Exam: Deferred Gastrointestinal: No Organomegaly, Non Tender, No Pulsatile Mass, Normal Bowel Sounds, Soft Genitalia: Deferred Pelvic: Deferred Rectal: Deferred Extremities: No calf tenderness, Normal capillary refill, Normal inspection, Normal range of motion, Non-tender, No pedal edema Musculoskeletal : Apperance: Normal 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 Was a procedure done?: No Differential Dx Considerations may include: Anemia Electrolyte imbalance X-Ray, Labs, Meds, VS Vital Signs Date Time Temp Pulse Resp B/P (MAP) Pulse Ox O2 Delivery O2 Flow Rate FiO2 01/31/25 13:58 97.6 65 17 119/79 (92) 100 97.6 01/31/25 11:22 72 17 100 Room Air 01/31/25 11:22 98.2 72 17 115/74 (88) 100 98.2 01/31/25 10:10 97.9 68 14 124/90 100 97.9 Lab Test 01/31/25 10:22 Range/Units White Blood Count 7.4 4.4-10.8 10^3/uL Red Blood Count 5.95 H 4.5-5.90 10^6/uL Hemoglobin 17.4 13.5-17.5 g/dL Hematocrit 50.4 41.0-53.0 % Mean Corpuscular Volume 84.6 80.0-100.0 fL Mean Corpuscular Hemoglobin 29.3 28.0-32.0 pg Mean Corpuscular Hemoglobin Concent 34.6 32.0-36.0 g/dL Red Cell Distribution Width 12.2 11.8-14.3 % Platelet Count 298 140-450 10^3/uL Mean Platelet Volume 8.7 6.9-10.8 fL Neutrophils (%) (Auto) 63.6 37.0-80.0 % Lymphocytes (%) (Auto) 23.9 10.0-50.0 % Monocytes (%) (Auto) 8.9 0.0-12.0 % Eosinophils (%) (Auto) 2.2 0.0-7.0 % Basophils (%) (Auto) 1.4 0.0-2.0 % Neutrophils # (Auto) 4.7 1.6-8.6 10 ^3/uL Lymphocytes # (Auto) 1.8 0.4-5.4 10 ^3/uL Monocytes # (Auto) 0.7 0-1.3 10 ^3/uL Eosinophils # (Auto) 0.2 0-0.8 10 ^3/uL Basophils # (Auto) 0.1 0-0.2 10 ^3/uL Nucleated Red Blood Cells 0.1 % Sodium Level 141 136-145 mmol/L Potassium Level 4.2 3.5-5.1 mmol/L Chloride Level 102 98-107 mmol/L Carbon Dioxide Level 30 20-31 mmol/L Anion Gap 9 5-15 Blood Urea Nitrogen 8 L 9-23 mg/dL Creatinine 1.07 0.700-1.30 mg/dL Glomerular Filtration Rate Calc 99 >90 mL/min BUN/Creatinine Ratio 7.5 L 10.0-20.0 Serum Glucose 91 74-106 mg/dL Calcium Level 10.4 8.7-10.4 mg/dL Patient alert. Complaining of abdominal discomfort. Vitals stable. Answering questions. WBC within normal limits. Abdomen is soft nontender. Explained to the patient. Continue monitoring. Time of 1ST Reevaluation: 11:15 Reevaluation 1ST: Unchanged Patient Education/Counseling: Diagnosis, Treatment, Prognosis Family Education/Counseling: No Family Present SEPSIS Sepsis Screen Date sepsis recognized/suspect: Jan 31, 2025 Time Sepsis recognized/suspect: 1012 Recent Procedure: No On Antibiotic Therapy: No Respiratory Rate >20: No Heart Rate >90: No Temp<36 C (96.8 F) or >38.3 C: No SBP <90 or MAP <65 mmHG: No New Acute Mental Status Change: No Is the patient on CPAP, BIPAP,: No Vital Signs Date Time Temp Pulse Resp B/P (MAP) Pulse Ox O2 Delivery O2 Flow Rate FiO2 01/31/25 13:58 97.6 65 17 119/79 (92) 100 97.6 01/31/25 11:22 72 17 100 Room Air 01/31/25 11:22 98.2 72 17 115/74 (88) 100 98.2 01/31/25 10:10 97.9 68 14 124/90 100 97.9 Laboratory Tests Test 01/31/25 10:22 White Blood Count 7.4 10^3/uL (4.4-10.8) Departure 1 Departure Time of Disposition: 17:46 Impression: Primary Impression: Gastritis Qualified Codes: K29.00 - Acute gastritis without bleeding Disposition: 30 STILL A PATIENT Condition: Good Discharged With: Self Critical Care Note Critical Care Time?: No Stability Stability form required: No I personally scribed for CHILO BURGESS MD ([email or web address]) on 01/31/25 at 10:42. Electronically submitted by Sumit Mejia ([email or web address]). CHILO BURGESS MD Jan 31, 2025 10:42
[2025-01-31 10:52] LABS: Hematocrit 50.4 % (41.0-53.0); Hemoglobin 17.4 g/dL (13.5-17.5); Mean Corpuscular Hemoglobin 29.3 pg (28.0-32.0); Mean Corpuscular Volume 84.6 fL (80.0-100.0); Nucleated Red Blood Cells % 0.1 %
[2025-01-31 10:59] LABS: Chloride 102 mmol/L (98-107); Potassium 4.2 mmol/L (3.5-5.1); Sodium 141 mmol/L (136-145)
[2025-01-31 11:00] LABS: Anion Gap 9 (5-15); Calcium 10.4 mg/dL (8.7-10.4); Carbon Dioxide 30 mmol/L (20-31)
[2025-01-31 11:05] LABS: BUN/Creatinine Ratio 7.5 (10.0-20.0); Blood Urea Nitrogen 8 mg/dL (9-23); Glucose 91 mg/dL (74-106)
[2025-01-31 13:58] VITALS: BP 119/79; PULSE 65; RESP 17; TEMP 97.6; O2SAT 100
== END 2025-01-31 14:04 | disposition home or self-care (01) ==
LOC: ER 10:07
DX: K29.70 Gastritis, unspecified, without bleeding (principal); F17.290 Nicotine dependence, other tobacco product, uncomplicated; Z79.899 Other long term (current) drug therapy; X50.0XXA Overexertion from strenuous movement or load, initial encounter; Y93.89 Activity, other specified; Y92.89 Other specified places as the place of occurrence of the external cause; Y99.8 Other external cause status
CPT/HCPCS: 36415; 80048; 85025

== ENCOUNTER 2025-02-01 03:10 | Inpatient (IN) | payer MEDICAID ==
[~2025-02-01] VITALS: Ht 167.6 cm; Wt 63.3 kg
[2025-02-01] MEDS: SODIUM CHLORIDE 0.9% 1,000 ML IVB ONE (03:30)
--- NOTE | 2025-02-01 03:44 | ED.PDOC ---
GI ASSESSMENT HPI Comments This is a 24-year-old male with past medical history of suspected Crohn's disease (patient says it was ruled out though), no significant surgical history who has come to the ER with abdominal pain and throat pain. Patient reports that he has acute onset of right lower quadrant pain that began today, burning in nature, 7/10 in intensity, associated with lower back pain, nausea, and 1 episode of vomiting, with no relieving or aggravating factors. He also complains of diarrhea which he had 2 days ago, and today he had 3 episodes of no volume watery stool mixed with blood. On inquiry, patient states that he has never been diagnosed of hemorrhoids. He states he took 1 dose of Tylenol which has decreased the pain slightly. Patient also complains of pain in his throat, making it difficult for him to swallow. He denies any fever, chills, cough, shortness of breath, GERD symptoms, recent travel history, any sick contacts, chest pain or epigastric pain. Chief Complaint: Abdominal Pain Time Seen by MD: 03:30 Primary Care Provider: Padmaja Armstrong Notes: Medications, Allergies Allergies: Coded Allergies: NO KNOWN ALLERGIES (Unverified , 07/23/12) Home Meds Active Scripts Metronidazole (Flagyl) 500 Mg Tab, 1 TAB PO BID, #14 TAB Prov:FELY PRECIADO 12/22/24 Ciprofloxacin Hcl (Cipro) 500 Mg Tab, 1 TAB PO BID, #20 TAB Prov:FELY PRECIADO 12/22/24 Ciprofloxacin Hcl (Cipro) 500 Mg Tab, 500 MG PO BID for 7 Days, #14 TAB Prov:DEBO WILSON DO 11/20/24 Dicyclomine Hcl (BENTYL CAPSULE) 10 Mg Cp, 1 CAP PO Q6HPRN, #20 CAP 0 Refills Prov:CORBY SWANN PAC 09/02/24 Ibuprofen (Ibuprofen) 600 Mg Tab, 1 TAB PO Q6HP PRN, #20 TAB Prov:CORBY SWANN PAC 09/02/24 Pantoprazole Sodium Sesquihydr (Protonix) 40 Mg Tab, 40 MG PO DAILY for 5 Days, #5 TAB Prov:CHILO BURGESS MD 05/08/24 Dicyclomine Hcl (Dicyclomine Hcl) 20 Mg Tab, 1 TAB PO TID PRN, #30 TAB 1 Refill Prov:ROSEMARY BLOUNT MANAGER PET 03/06/24 Metronidazole (Flagyl) 500 Mg Tab, 1 TAB PO TID for 5 Days, #15 TAB Prov:[facility] 12/17/23 Cephalexin (KEFLEX CAPSULE) 250 Mg Cp, 1 CAP PO BID for 5 Days, #28 CAP Prov:STACI [facility]OCTAVIO [facility] 12/17/23 Cyanocobalamin (B12) 1,000 Mcg Cap, 1000 MCG PO DAILY for 30 Days, #30 CAP 2 Refills Prov:STACI JONESOCTAVIO [facility] 12/17/23 Ergocalciferol (VITAMIN D 43653 UNIT) 50,000 [place], [address] UNIT PO Q7D for 90 Days, #12 CAP Prov:STACI JONESOCTAVIO [facility] 12/17/23 Information Source: Patient Mode of Arrival: Ambulatory Timing: Hours Duration: Since onset Prehospital treatment: None Quality: Burning Vomitus: Watery Stool: Blood Streaked, Loose Severity: Mild Past Medical History PAST MEDICAL HISTORY: Denies Surgical History: Denies all surgeries Family History Family History: Reviewed,noncontributory to illness, Unknown Social History Smoker: Other (Patient vapes nicotine) Alcohol: Rarely Drugs: Denies Drug Use Lives In: Home Constitutional: denies: chills, diaphoresis, fatigue, fever, malaise, sweats, weakness, others EENTM: reports: throat pain; denies: blurred vision, double vision, ear bleeding, ear discharge, ear drainage, ear pain, ear ringing, eye pain, eye redness, hearing loss, mouth pain, mouth swelling, nasal discharge, nose bleeding, nose congestion, nose pain, photophobia, tearing, throat swelling, voice changes, others Respiratory: denies: cough, hemoptysis, orthopnea, SOB at rest, shortness of breath, SOB with excertion, stridor, wheezing, others Cardiovascular: denies: chest pain, dizzy spells, diaphoresis, Dyspnea on exertion, edema, irregular heart beat, left arm pain, lightheadedness, palpit ations, PND, syncope, others Gastrointestinal: reports: abdominal pain (Right lower quadrant pain), blood streaked bowels, diarrhea, difficulty swallowing, nausea, vomiting (Clear, watery); denies: abdomen distended, constipated, dysphagia, hematemesis, melena, poor appetite, poor fluid intake, rectal bleeding, rectal pain, others Genitourinary: denies: burning, dysuria, flank pain, frequency, hematuria, incontinence, penile discharge, penile sore, pain, testicle pain, testicle swelling, urgency, others Neurological: denies: dizziness, fainting, headache, left sided numbness, left sided weakness, numbness, paresthesia, pre-existing deficit, right sided numbness, right sided weakness, seizure, speech problems, tingling, tremors, weakness, others Musculoskeletal: denies: back pain, gout, joint pain, joint swelling, muscle pain, muscle stiffness, neck pain, others Integumetry: denies: bruises, change in color, change in hair/nails, dryness, laceration, lesions, lumps, rash, wounds, others Allergic/Immunocompromised: denies: Difficulty Healing, Frequent Infections, Hives, Itching, others Hematologic/Lymphatic: denies: anemia, blood clots, easy bleeding, easy bruising, swollen glands, others Endocrine: denies: excessive hunger, excessive sweating, excessive thirst, excessive urination, flushing, intolerance to cold, intolerance to heat, unexplained weight gain, unexplained weight loss, others Psychiatric: denies: anxiety, bipolar disorder, depression, hopeless, panic disorder, schizophrenia, sleepless, suicidal, others Physical Exam General Appearance: Normal HEENT: Pharyngeal Erythema, Other (Absence of any tonsillar exudate, no pallor no icterus) Neck: Normal, Normal Inspection Respiratory: No Accessory Muscle Use, No Respiratory Distress, Normal Breath Sounds, Other (No wheezing, no stridor, no rhonchi) Cardiovascular: No Edema, No JVD, No Murmur, Regular Rate/Rhythm Breast Exam: Deferred Gastrointestinal: Normal Bowel Sounds, RLQ, Tenderness, Other (No guarding, rebound tenderness or masses felt) Genitalia: Deferred Pelvic: Deferred Rectal: Deferred Extremities: Normal inspection, Normal range of motion, Non-tender, No pedal edema Neurologic: Alert, No Motor Deficits, No Sensory Deficits Cerebellar Function: Normal Reflexes: Normal Skin: Normal Color Lymphatic: Other (No cervical lymphadenopathy) Was a procedure done? Was a procedure done?: No GI differential Dx Differential Diagnosis: Other Other Differential Diagnosis Nonspecific colitis, mesenteric adenitis, Crohn's disease, rule out small-bowel obstruction X-Ray, Labs, Meds, VS Vital Signs Date Time Temp Pulse Resp B/P (MAP) Pulse Ox O2 Delivery O2 Flow Rate FiO2 02/01/25 05:45 Room Air* 0 21 02/01/25 03:11 98.1 83 20 128/99 99 98.1 Lab Test 02/01/25 05:40 02/01/25 03:31 Range/Units Urine Color Pending Urine Clarity Pending Urine pH Pending Urine Specific [place] Pending Urine Protein Pending Urine Ketones Pending Urine Blood Pending Urine Nitrite Pending Urine Bilirubin Pending Urine Urobilinogen Pending Urine Leukocyte Esterase Pending Urine RBC Pending Urine Microscopic WBC Pending Urine Squamous Epithelial Cells Pending Urine Bacteria Pending Urine Glucose Pending White Blood Count 9.4 # 4.4-10.8 10^3/uL Red Blood Count 5.66 4.5-5.90 10^6/uL Hemoglobin 16.1 13.5-17.5 g/dL Hematocrit 47.7 41.0-53.0 % Mean Corpuscular Volume 84.2 80.0-100.0 fL Mean Corpuscular Hemoglobin 28.4 28.0-32.0 pg Mean Corpuscular Hemoglobin Concent 33.7 32.0-36.0 g/dL Red Cell Distribution Width 12.3 11.8-14.3 % Platelet Count 328 140-450 10^3/uL Mean Platelet Volume 8.6 6.9-10.8 fL Neutrophils (%) (Auto) 62.6 37.0-80.0 % Lymphocytes (%) (Auto) 24.4 10.0-50.0 % Monocytes (%) (Auto) 9.7 0.0-12.0 % Eosinophils (%) (Auto) 2.3 0.0-7.0 % Basophils (%) (Auto) 1.0 0.0-2.0 % Neutrophils # (Auto) 5.9 1.6-8.6 10 ^3/uL Lymphocytes # (Auto) 2.3 0.4-5.4 10 ^3/uL Monocytes # (Auto) 0.9 0-1.3 10 ^3/uL Eosinophils # (Auto) 0.2 0-0.8 10 ^3/uL Basophils # (Auto) 0.1 0-0.2 10 ^3/uL Nucleated Red Blood Cells 0.1 % Sodium Level 142 136-145 mmol/L Potassium Level 4.3 3.5-5.1 mmol/L Chloride Level 103 98-107 mmol/L Carbon Dioxide Level 29 20-31 mmol/L Anion Gap 10 5-15 Blood Urea Nitrogen 11 9-23 mg/dL Creatinine 1.10 0.700-1.30 mg/dL Glomerular Filtration Rate Calc 96 >90 mL/min BUN/Creatinine Ratio 10.0 10.0-20.0 Serum Glucose 89 74-106 mg/dL Calcium Level 9.5 8.7-10.4 mg/dL Total Bilirubin 0.4 0.2-1.0 mg/dL Aspartate Amino Transferase (AST) 25 13-40 U/L Alanine Aminotransferase (ALT) 48 H 7-40 U/L Alkaline Phosphatase 86 46-116 U/L Total Protein 7.3 5.7-8.2 g/dL Albumin 4.8 3.2-4.8 g/dL Lipase 46 12-53 U/L Current Medications Medications (Trade) Dose Ordered Sig/Juan F Route Start Time Stop Time Status Last Admin Sodium Chloride 1,000 ml @ 1,000 mls/hr Q1H ONCE IVB 02/01/25 03:30 02/01/25 04:29 DC 02/01/25 03:30 Images Reviewed?: Images reviewed and evaluated by me Time of 1ST Reevaluation: 06:00 Reevaluation 1ST: Unchanged Time of 2ND Reevaluation: 07:12 Reevaluation 2ND: Unchanged Patient Education/Counseling: Diagnosis, Treatment Family Education/Counseling: No Family Present Comments Patient came in with abdominal pain. He had taken Tylenol just before coming to the ER so we did not give any pain medication. IV NS 1 L bolus was administered. CBC and BMP were within normal limits. A CT scan of the abdomen showed 'Fecal like contents distal small bowel. Fecal like contents within the small bowel which can be seen with ileus, hypomotility, bowel obstruction; Normal appendix; Scattered subcentimeter mesenteric lymph nodes which can be seen with mesenteric adenitis.' He needs further inpatient workup and management for acute abdominal pain possibly due to mesenteric adenitis, possible nonspecific colitis, to rule out small-bowel obstruction. We have started him on IV Rocephin and IV Flagyl. SEPSIS Sepsis Screen Date sepsis recognized/suspect: Feb 01, 2025 Time Sepsis recognized/suspect: 316 Recent Procedure: No On Antibiotic Therapy: No Respiratory Rate >20: No Heart Rate >90: No Temp<36 C (96.8 F) or >38.3 C: No SBP <90 or MAP <65 mmHG: No New Acute Mental Status Change: No Is the patient on CPAP, BIPAP,: No Physician Orders Urinalysis (02/01/25 03:16) Ct Ab Pel With Iv Con Only (02/01/25 03:24) Vital Signs Date Time Temp Pulse Resp B/P (MAP) Pulse Ox O2 Delivery O2 Flow Rate FiO2 02/01/25 05:45 Room Air* 0 21 02/01/25 03:11 98.1 83 20 128/99 99 98.1 Laboratory Tests Test 02/01/25 03:31 White Blood Count 9.4 10^3/uL (4.4-10.8) # Medications Medications Dose Ordered Sig/Juan F Route Start Time Stop Time Status Last Admin Dose Admin Sodium Chloride 1,000 ml @ 1,000 mls/hr Q1H ONCE IVB 02/01/25 03:30 02/01/25 04:29 DC 02/01/25 03:30 Departure 1 Departure Time of Disposition: 07:15 Impression: Primary Impression: Abdominal pain Additional Impressions: Nonspecific colitis Mesenteric adenitis Disposition: ADMITTED INPATIENT Admit to: Med Surg Condition: Unstable Critical Care Note Critical Care Time?: No Stability Stability form required: No Heart Score Heart Score: Heart Score Response (Comments) Value History N/A 0 EKG N/A 0 Age N/A 0 Risk Factors N/A 0 Troponin N/A 0 Total 0 [place] RESIDENT Feb 01, 2025 03:44
[2025-02-01 03:48] LABS: Hematocrit 47.7 % (41.0-53.0); Hemoglobin 16.1 g/dL (13.5-17.5); Mean Corpuscular Hemoglobin 28.4 pg (28.0-32.0); Mean Corpuscular Volume 84.2 fL (80.0-100.0); Nucleated Red Blood Cells % 0.1 %
[2025-02-01 04:03] LABS: Albumin 4.8 g/dL (3.2-4.8); Alkaline Phosphatase 86 U/L (46-116); Anion Gap 10 (5-15); BUN/Creatinine Ratio 10.0 (10.0-20.0); Bilirubin, Total 0.4 mg/dL (0.2-1.0); Blood Urea Nitrogen 11 mg/dL (9-23); Calcium 9.5 mg/dL (8.7-10.4); Carbon Dioxide 29 mmol/L (20-31); Chloride 103 mmol/L (98-107); Glucose 89 mg/dL (74-106); Lipase 46 U/L (12-53); Potassium 4.3 mmol/L (3.5-5.1); Sodium 142 mmol/L (136-145); Total Protein 7.3 g/dL (5.7-8.2)
[2025-02-01 04:16] LABS: Alanine Aminotransferase 48 U/L (7-40)
[2025-02-01] MEDS: IOHEXOL 300 MG/ML 100ML BOTTLE IJ ONE (06:11)
--- NOTE | 2025-02-01 06:41 | DVH ---
Indication: RLQ pain Technique: CT axial images of the abdomen and pelvis are obtained with intravenous contrast. Coronal and sagittal reformats were obtained. Radiation Dose Information: CTDI volume is 8.57 mGy. Dose-length product is 472.6 mGy*cm Comparison: CT CT AB PEL WITH IV CON ONLY on DOS: 07/10/23 FINDINGS: The lung bases demonstrate no pleural effusion. Adrenal glands, spleen, pancreas unremarkable. No enhancing hepatic lesion. Gallbladder contracted. Kidneys demonstrate no hydronephrosis. Stomach is relatively nondistended. Small bowel loops normal in caliber. Fecal like contents within the distal small bowel. Colonic diverticula. Moderate volume stool in the colon. Normal appendix. Scattered subcentimeter mesenteric lymph nodes. Abdominal aorta normal in caliber. Bladder partially distended. No free pelvic fluid. No inguinal lymphadenopathy. No aggressive osseous process. IMPRESSION: Fecal like contents distal small bowel. Fecal like contents within the small bowel which can be seen with ileus, hypomotility, bowel obstruction. Normal appendix. Scattered subcentimeter mesenteric lymph nodes which can be seen with mesenteric adenitis.
[2025-02-01 07:21] LABS: Urine Protein, UAD Negative (Negative)
--- NOTE | 2025-02-01 08:07 | DVHHP2 ---
History of Present Illness Reason for Visit: Abdominal pain with throat pain History of Present Illness Dony Boston is a 24-year-old male with past medical history of suspected Crohn's who presents to the ED with abdominal pain, throat pain radiating to the lower back with nausea, vomiting, and diarrhea that started 2 days ago. Patient reports that he ate a tuna sandwich from [employer] yesterday at 10:00 p.m.. He also reports that he had a bowel movement that was soft and regular today. Denies any melena or hematochezia. Patient reports that his abdominal pain is 4/10 feels sore and intermittent in nature. Patient reports that eating makes the pain better. Patient also reports that he eats spicy foods regularly. Patient's brother Bethel at the bedside. Reports that they live together. Patient also reports that he uses vape. Patient reports that he has been seeing GI specialist regularly, last visit was 8 months ago and was told that there was nothing abnormal going on, reports that he has another appointment coming up on February 26 of this year. Patient denies any recent trauma or injury, recent sick contacts, recent travels, chest pain, shortness of breath, fever, chills, lightheadedness, weakness, dizziness, or urinary symptoms. Past Medical History Suspected Crohn's disease Past Surgical History: None Family History: DM, Other (Mom with rheumatoid arthritis and diabetes. Dad with prediabetes. Grandma with diabetes.) Smoke: # pack years (Vape use) ALCOHOL: none Lives: with Family Domestic Violence: Neg Review of Systems Gastrointestinal: Nausea, Vomiting, Abdominal Pain, Diarrhea Musculoskeletal: back pain Allergies: Coded Allergies: NO KNOWN ALLERGIES (Unverified , 07/23/12) Exam Vital Signs Vital Signs Date Time Temp Pulse Resp B/P (MAP) Pulse Ox O2 Delivery O2 Flow Rate FiO2 02/01/25 07:30 97.7 70 16 110/83 (92) 96 97.7 02/01/25 05:45 Room Air* 0 21 General Appearance: Alert, Oriented X3, Cooperative, No acute distress HEENT: Atraumatic, PERRLA, EOMI, Mucous membr. moist/pink Respiratory: Clear to auscultation, Normal air movement Cardiovascular: Regular rate, Normal S1, Normal S2, No murmurs Abdominal: Normal bowel sounds, Soft Extremities: No clubbing, No cyanosis, No edema, Normal pulses Skin: No significant lesion Neuro: Normal speech, Strength at 5/5 X4 ext, Normal tone, Sensation intact Psych/Mental Status: Mental status NL, Mood NL Labs/Xrays Labs Test 02/01/25 05:40 02/01/25 03:31 Range/Units Urine Color Light-yellow Yellow Urine Clarity Clear Clear Urine pH 6.0 5.0-9.0 Urine Specific [place] 1.007 1.001-1.035 Urine Protein Negative Negative Urine Ketones Negative Negative Urine Blood Negative Negative /uL Urine Nitrite Negative Negative Urine Bilirubin Negative Negative Urine Urobilinogen Normal Negative mg/dL Urine Leukocyte Esterase Negative Negative /uL Urine RBC None seen 0 - 3 /hpf Urine Microscopic WBC < 1 0-3 /HPF Urine Squamous Epithelial Cells None seen <5 /hpf Urine Bacteria None seen None Seen /hpf Urine Glucose Normal Normal mg/dL White Blood Count 9.4 # 4.4-10.8 10^3/uL Red Blood Count 5.66 4.5-5.90 10^6/uL Hemoglobin 16.1 13.5-17.5 g/dL Hematocrit 47.7 41.0-53.0 % Mean Corpuscular Volume 84.2 80.0-100.0 fL Mean Corpuscular Hemoglobin 28.4 28.0-32.0 pg Mean Corpuscular Hemoglobin Concent 33.7 32.0-36.0 g/dL Red Cell Distribution Width 12.3 11.8-14.3 % Platelet Count 328 140-450 10^3/uL Mean Platelet Volume 8.6 6.9-10.8 fL Neutrophils (%) (Auto) 62.6 37.0-80.0 % Lymphocytes (%) (Auto) 24.4 10.0-50.0 % Monocytes (%) (Auto) 9.7 0.0-12.0 % Eosinophils (%) (Auto) 2.3 0.0-7.0 % Basophils (%) (Auto) 1.0 0.0-2.0 % Neutrophils # (Auto) 5.9 1.6-8.6 10 ^3/uL Lymphocytes # (Auto) 2.3 0.4-5.4 10 ^3/uL Monocytes # (Auto) 0.9 0-1.3 10 ^3/uL Eosinophils # (Auto) 0.2 0-0.8 10 ^3/uL Basophils # (Auto) 0.1 0-0.2 10 ^3/uL Nucleated Red Blood Cells 0.1 % Sodium Level 142 136-145 mmol/L Potassium Level 4.3 3.5-5.1 mmol/L Chloride Level 103 98-107 mmol/L Carbon Dioxide Level 29 20-31 mmol/L Anion Gap 10 5-15 Blood Urea Nitrogen 11 9-23 mg/dL Creatinine 1.10 0.700-1.30 mg/dL Glomerular Filtration Rate Calc 96 >90 mL/min BUN/Creatinine Ratio 10.0 10.0-20.0 Serum Glucose 89 74-106 mg/dL Calcium Level 9.5 8.7-10.4 mg/dL Total Bilirubin 0.4 0.2-1.0 mg/dL Aspartate Amino Transferase (AST) 25 13-40 U/L Alanine Aminotransferase (ALT) 48 H 7-40 U/L Alkaline Phosphatase 86 46-116 U/L Total Protein 7.3 5.7-8.2 g/dL Albumin 4.8 3.2-4.8 g/dL Lipase 46 12-53 U/L Indication: RLQ pain Technique: CT axial images of the abdomen and pelvis are obtained with intravenous contrast. Coronal and sagittal reformats were obtained. Radiation Dose Information: CTDI volume is 8.57 mGy. Dose-length product is 472.6 mGy*cm Comparison: CT CT AB PEL WITH IV CON ONLY on DOS: 07/10/23 FINDINGS: The lung bases demonstrate no pleural effusion. Adrenal glands, spleen, pancreas unremarkable. No enhancing hepatic lesion. Gallbladder contracted. Kidneys demonstrate no hydronephrosis. Stomach is relatively nondistended. Small bowel loops normal in caliber. Fecal like contents within the distal small bowel. Colonic diverticula. Moderate volume stool in the colon. Normal appendix. Scattered subcentimeter mesenteric lymph nodes. Abdominal aorta normal in caliber. Bladder partially distended. No free pelvic fluid. No inguinal lymphadenopathy. No aggressive osseous process. IMPRESSION: Fecal like contents distal small bowel. Fecal like contents within the small bowel which can be seen with ileus, hypomotility, bowel obstruction. Normal appendix. Scattered subcentimeter mesenteric lymph nodes which can be seen with mesenteric adenitis. SEPSIS Sepsis Screen Date sepsis recognized/suspect: Feb 01, 2025 Time Sepsis recognized/suspect: 0547 Recent Procedure: No On Antibiotic Therapy: No Respiratory Rate >20: No Heart Rate >90: No Temp<36 C (96.8 F) or >38.3 C: No SBP <90 or MAP <65 mmHG: No New Acute Mental Status Change: No Is the patient on CPAP, BIPAP,: No Physician Orders Ct Ab Pel With Iv Con Only (02/01/25 03:24) Ceftriaxone 1gm/50ml (Rocephin) (02/01/25 07:30) Metronidazole 500mg/100ml (Flagyl 500mg/ (02/01/25 07:30) Vital Signs Date Time Temp Pulse Resp B/P (MAP) Pulse Ox O2 Delivery O2 Flow Rate FiO2 02/01/25 07:30 97.7 70 16 110/83 (92) 96 97.7 02/01/25 05:45 Room Air* 0 21 02/01/25 03:11 98.1 83 20 128/99 99 98.1 Laboratory Tests Test 02/01/25 03:31 White Blood Count 9.4 10^3/uL (4.4-10.8) # Medications Medications Dose Ordered Sig/Juan F Route Start Time Stop Time Status Last Admin Dose Admin Ceftriaxone Sodium 50 ml @ 100 mls/hr ONCE ONCE IV 02/01/25 07:30 02/01/25 07:59 02/01/25 07:49 100 MLS/HR Metronidazole 100 ml @ 100 mls/hr ONCE ONCE IV 02/01/25 07:30 02/01/25 08:29 02/01/25 07:49 100 MLS/HR Sodium Chloride 1,000 ml @ 1,000 mls/hr Q1H ONCE IVB 02/01/25 03:30 02/01/25 04:29 DC 02/01/25 03:30 1,000 MLS/HR Assessment/Plan Assessment/Plan Assessment Intractable abdominal pain radiating to the back with diarrhea, nausea, and vomiting secondary to mesenteric adenitis Intractable throat pain rule out strep Vape use History of suspected Crohn's disease Plan Admit to med surge Antiemetics Pain management CT abdomen and pelvis UA IV antibiotics-ceftriaxone + Flagyl Strep test NS 1 L given in ED Lipase UA UDS Diet Home medications reconciled DVT prophylaxis-SCDs PUD prophylaxis-PPIs Discussed plan of care with patient, patient's brother, and nurse Counseled patient on cessation of vape use [id number] Behavior change smoking greater than 10 minutes about use of other options also gave option of nicotine patch [id number] Preventive counseling healthy eating habits, physical activity, and reg ular checkups Plan discussed with: Patient, Other (Brother) Date of Service: Feb 01, 2025 Billing Provider: TEDDY SANCHEZ Common Visit Codes: [id number] INP/OBS CARE (HIGH) Secondary Visit Codes: [id number] COUNSELING IND, [id number] CHNG SMOKING >10MIN TEDDY SANCHEZ Feb 01, 2025 08:07
[2025-02-01 08:08] VITALS: PULSE 77; RESP 14; O2SAT 99
[2025-02-01] MEDS ORDERED: ONDANSETRON HCL 4 MG/2 ML VIAL IV PRN (08:15)
[2025-02-01] MEDS ORDERED: ACETAMINOPHEN 325 MG TAB PO PRN (08:15)
[2025-02-01] MEDS ORDERED: HYDROcodone-ACET 5/325MG TAB PO PRN (08:15)
[2025-02-01 08:33] LABS: Amphetamine Screen, Urine Neg (NEGATIVE); Barbiturate Scree,Urine Neg (NEGATIVE); Benzodiazephine Screen, Urine Neg (NEGATIVE); Cannabinoid Screen, Urine Neg (NEGATIVE); Cocaine Screen, Urine Neg (NEGATIVE); Opiate Scree,Urine Neg (NEGATIVE); Phencyclidine Screen, Urine Neg (NEGATIVE)
[2025-02-01 09:45] LABS: Rapid Strep A Screen-Throat Negative
[2025-02-01 09:58] VITALS: PULSE 78; RESP 20; O2SAT 98
[2025-02-01 10:18] VITALS: BP 132/78; PULSE 76; RESP 20; TEMP 98.4; O2SAT 98
[2025-02-01] MEDS: ERGOCALCIFEROL 50,000 UNIT(1.25MG) CAP PO SCH (11:54)
[2025-02-01] MEDS: PANTOPRAZOLE 40 MG/10 ML VIAL INJ IV SCH (11:54)
[2025-02-01] MEDS: CYANOCOBALAMIN 500 MCG TAB PO SCH (11:55)
[2025-02-01 12:46] VITALS: BP 99/53; PULSE 78; RESP 18; TEMP 97.5; O2SAT 98
[2025-02-01 20:00] VITALS: PULSE 68; O2SAT 98
[2025-02-01 21:00] VITALS: BP 107/70; PULSE 73; RESP 18; TEMP 98.3; O2SAT 98
[2025-02-02] VITALS (8 sets, daily range): BP systolic 100–112; BP diastolic 63–74; PULSE 68–98; RESP 16–20; TEMP 97.9–98.7; O2SAT 96–98
[2025-02-02 08:42] LABS: Hematocrit 43.4 % (41.0-53.0); Hemoglobin 14.7 g/dL (13.5-17.5); Mean Corpuscular Hemoglobin 28.7 pg (28.0-32.0); Mean Corpuscular Volume 84.8 fL (80.0-100.0); Nucleated Red Blood Cells % 0.1 %
[2025-02-02 08:59] LABS: Alanine Aminotransferase 35 U/L (7-40); Albumin 4.1 g/dL (3.2-4.8); Alkaline Phosphatase 73 U/L (46-116); Anion Gap 9 (5-15); BUN/Creatinine Ratio 7.5 (10.0-20.0); Bilirubin, Total 0.6 mg/dL (0.2-1.0); Calcium 9.5 mg/dL (8.7-10.4); Carbon Dioxide 28 mmol/L (20-31); Chloride 106 mmol/L (98-107); Glucose 92 mg/dL (74-106); Potassium 4.1 mmol/L (3.5-5.1); Sodium 143 mmol/L (136-145); Total Protein 6.3 g/dL (5.7-8.2)
[2025-02-02 09:00] LABS: Blood Urea Nitrogen 8 mg/dL (9-23)
--- NOTE | 2025-02-02 12:29 | DVHPN2 ---
Reviewed: Care Plan, H&P, Labs, Medications, Previous Orders, Radiology Changes from previous H/P or p: No Changes Gastrointestinal: Nausea, Vomiting, Abdominal Pain, Diarrhea Musculoskeletal: back pain Objective Vitals Vital Signs Date Time Temp Pulse Resp B/P (MAP) Pulse Ox O2 Delivery O2 Flow Rate FiO2 02/02/25 09:00 98.0 70 18 100/64 (76) 97 98.0 02/02/25 08:00 Room Air* 0 21 Intake/Output Intake and Output 02/02/25 07:00 Intake Total 2225 ml Balance 2225 ml Intake Oral 2150 ml IV Total 75 ml # Voids 2 # Bowel Movements 2 Medications Current Medications Medications Dose Ordered Sig/Juan F Route Start Time Stop Time Status Last Admin Dose Admin Ergocalciferol 50,000 unit Q7D PO 02/01/25 08:15 02/01/25 11:54 50,000 UNIT Cyanocobalamin 1,000 mcg DAILY PO 02/01/25 10:00 02/02/25 09:10 1,000 MCG Ceftriaxone Sodium 50 ml @ 100 mls/hr DAILY@09 IV 02/02/25 09:00 02/02/25 09:09 100 MLS/HR Metronidazole 100 ml @ 100 mls/hr Q8HR IV 02/01/25 14:00 02/02/25 04:50 100 MLS/HR Pantoprazole Sodium 40 mg DAILY IV 02/01/25 10:00 02/02/25 09:09 40 MG Acetaminophen/ Hydrocodone Bitart 1 tab Q4HP PRN PO 02/01/25 08:15 Ondansetron HCl 4 mg Q4HP PRN IV 02/01/25 08:15 Acetaminophen 650 mg Q6HP PRN PO 02/01/25 08:15 Laboratory Results Laboratory Tests 02/02/25 08:17 Chemistry Test 02/02/25 08:17 Albumin 4.1 g/dL (3.2-4.8) Calcium Level 9.5 mg/dL (8.7-10.4) Total Protein 6.3 g/dL (5.7-8.2) LFT Test 02/02/25 08:17 Alanine Aminotransferase (ALT) 35 U/L (7-40) Alkaline Phosphatase 73 U/L (46-116) Aspartate Amino Transferase (AST) 18 U/L (13-40) Total Bilirubin 0.6 mg/dL (0.2-1.0) Urinalysis Test 02/01/25 05:40 Urine Color Light-yellow (Yellow) Urine Clarity Clear (Clear) Urine pH 6.0 (5.0-9.0) Urine Specific [place] 1.007 (1.001-1.035) Urine Protein Negative (Negative) Urine Ketones Negative (Negative) Urine Blood Negative /uL (Negative) Urine Nitrite Negative (Negative) Urine Bilirubin Negative (Negative) Urine Urobilinogen Normal mg/dL (Negative) Urine Leukocyte Esterase Negative /uL (Negative) Urine RBC None seen /hpf (0 - 3) Urine Microscopic WBC < 1 /HPF (0-3) Urine Squamous Epithelial Cells None seen /hpf (<5) Urine Bacteria None seen /hpf (None Seen) Urine Glucose Normal mg/dL (Normal) Microbiology Microbiology Date/Time Source Procedure Growth Status 02/01/25 08:49 Throat Nose/Throat Culture - Preliminary Resulted Labs and/or images reviewed: Labs reviewed by me, Image(s) reviewed by me Assessment/Plan Assessment/Plan Intractable abdominal pain with nausea and vomiting Acute gastroenteritis: Rocephin Flagyl pantoprazole Zofran History of Crohn's disease Acute dehydration: IV fluids Plan discussed with: Patient Date of Service: Feb 02, 2025 Billing Provider: JIGNESH RODAS MD Common Visit Codes: [id number] INP/OBS CARE(HIGH) JIGNESH RODAS MD Feb 02, 2025 12:29
[2025-02-03 01:00] VITALS: BP 112/80; PULSE 70; RESP 16; TEMP 98.2; O2SAT 97
[2025-02-03 05:00] VITALS: BP 104/68; PULSE 88; RESP 16; TEMP 98; O2SAT 97
[2025-02-03 08:00] VITALS: PULSE 73; RESP 16; O2SAT 95
[2025-02-03 09:08] VITALS: BP 111/70; PULSE 73; RESP 16; TEMP 97.8; O2SAT 95
--- NOTE | 2025-02-03 10:04 | DVHPN2 ---
Reviewed: Care Plan, H&P, Labs, Medications, Previous Orders, Radiology Changes from previous H/P or p: No Changes Gastrointestinal: Nausea, Vomiting, Abdominal Pain, Diarrhea Musculoskeletal: back pain Objective Vitals Vital Signs Date Time Temp Pulse Resp B/P (MAP) Pulse Ox O2 Delivery O2 Flow Rate FiO2 02/03/25 09:08 97.8 73 16 111/70 (84) 95 97.8 02/03/25 08:00 Room Air* 0 21 Intake/Output Intake and Output 02/03/25 07:00 Intake Total 4030 ml Balance 4030 ml Intake Oral 3880 ml IV Total 150 ml # Voids 4 Medications Current Medications Medications Dose Ordered Sig/Juan F Route Start Time Stop Time Status Last Admin Dose Admin Ergocalciferol 50,000 unit Q7D PO 02/01/25 08:15 02/01/25 11:54 50,000 UNIT Cyanocobalamin 1,000 mcg DAILY PO 02/01/25 10:00 02/03/25 09:19 1,000 MCG Ceftriaxone Sodium 50 ml @ 100 mls/hr DAILY@09 IV 02/02/25 09:00 02/03/25 09:20 100 MLS/HR Metronidazole 100 ml @ 100 mls/hr Q8HR IV 02/01/25 14:00 02/03/25 05:39 100 MLS/HR Pantoprazole Sodium 40 mg DAILY IV 02/01/25 10:00 02/03/25 09:19 40 MG Acetaminophen/ Hydrocodone Bitart 1 tab Q4HP PRN PO 02/01/25 08:15 Ondansetron HCl 4 mg Q4HP PRN IV 02/01/25 08:15 Acetaminophen 650 mg Q6HP PRN PO 02/01/25 08:15 Laboratory Results Laboratory Tests 02/02/25 08:17 Urinalysis Test 02/01/25 05:40 Urine Color Light-yellow (Yellow) Urine Clarity Clear (Clear) Urine pH 6.0 (5.0-9.0) Urine Specific [place] 1.007 (1.001-1.035) Urine Protein Negative (Negative) Urine Ketones Negative (Negative) Urine Blood Negative /uL (Negative) Urine Nitrite Negative (Negative) Urine Bilirubin Negative (Negative) Urine Urobilinogen Normal mg/dL (Negative) Urine Leukocyte Esterase Negative /uL (Negative) Urine RBC None seen /hpf (0 - 3) Urine Microscopic WBC < 1 /HPF (0-3) Urine Squamous Epithelial Cells None seen /hpf (<5) Urine Bacteria None seen /hpf (None Seen) Urine Glucose Normal mg/dL (Normal) Microbiology Microbiology Date/Time Source Procedure Growth Status 02/01/25 08:49 Throat Nose/Throat Culture - Preliminary Resulted Labs and/or images reviewed: Labs reviewed by me, Image(s) reviewed by me Assessment/Plan Assessment/Plan Intractable abdominal pain with nausea and vomiting Acute gastroenteritis: Rocephin Flagyl pantoprazole Zofran History of Crohn's disease Acute dehydration: IV fluids Feels better and wants to go home JENA Bruce bedside Plan discussed with: Patient Date of Service: Feb 03, 2025 Billing Provider: JIGNESH RODAS MD Common Visit Codes: [id number] INP/OBS CARE(HIGH) JIGNESH RODAS MD Feb 03, 2025 10:04
[2025-02-03] MEDS ORDERED: LEVO500T91 PO (10:06)
[2025-02-03] MEDS ORDERED: METR-344 PO (10:06)
--- NOTE | 2025-02-03 10:10 | DVHDS2 ---
Discharge Summary Date of Admission Feb 01, 2025 at 08:02 Date of Discharge: Feb 03, 2025 Admitting Diagnosis Abdominal pain nausea and vomiting Wounds: None Labs/Diagnostic Data: Laboratory Results Test 02/02/25 08:17 02/01/25 08:49 02/01/25 05:40 02/01/25 03:31 White Blood Count 7.1 10^3/uL (4.4-10.8) Red Blood Count 5.11 10^6/uL (4.5-5.90) Hemoglobin 14.7 g/dL (13.5-17.5) Hematocrit 43.4 % (41.0-53.0) Mean Corpuscular Volume 84.8 fL (80.0-100.0) Mean Corpuscular Hemoglobin 28.7 pg (28.0-32.0) Mean Corpuscular Hemoglobin Concent 33.8 g/dL (32.0-36.0) Red Cell Distribution Width 12.3 % (11.8-14.3) Platelet Count 258 10^3/uL (140-450) Mean Platelet Volume 8.4 fL (6.9-10.8) Neutrophils (%) (Auto) 65.8 % (37.0-80.0) Lymphocytes (%) (Auto) 22.8 % (10.0-50.0) Monocytes (%) (Auto) 8.5 % (0.0-12.0) Eosinophils (%) (Auto) 2.0 % (0.0-7.0) Basophils (%) (Auto) 0.9 % (0.0-2.0) Neutrophils # (Auto) 4.7 10 ^3/uL (1.6-8.6) Lymphocytes # (Auto) 1.6 10 ^3/uL (0.4-5.4) Monocytes # (Auto) 0.6 10 ^3/uL (0-1.3) Eosinophils # (Auto) 0.1 10 ^3/uL (0-0.8) Basophils # (Auto) 0.1 10 ^3/uL (0-0.2) Nucleated Red Blood Cells 0.1 % Sodium Level 143 mmol/L (136-145) Potassium Level 4.1 mmol/L (3.5-5.1) Chloride Level 106 mmol/L (98-107) Carbon Dioxide Level 28 mmol/L (20-31) Anion Gap 9 (5-15) Blood Urea Nitrogen 8 mg/dL (9-23) Creatinine 1.07 mg/dL (0.700-1.30) Glomerular Filtration Rate Calc 99 mL/min (>90) BUN/Creatinine Ratio 7.5 (10.0-20.0) Serum Glucose 92 mg/dL (74-106) Calcium Level 9.5 mg/dL (8.7-10.4) Total Bilirubin 0.6 mg/dL (0.2-1.0) Aspartate Amino Transferase (AST) 18 U/L (13-40) Alanine Aminotransferase (ALT) 35 U/L (7-40) Alkaline Phosphatase 73 U/L (46-116) Total Protein 6.3 g/dL (5.7-8.2) Albumin 4.1 g/dL (3.2-4.8) Group A Streptococcus Rapid Negative Urine Color Light-yellow (Yellow) Urine Clarity Clear (Clear) Urine pH 6.0 (5.0-9.0) Urine Specific [place] 1.007 (1.001-1.035) Urine Protein Negative (Negative) Urine Ketones Negative (Negative) Urine Blood Negative /uL (Negative) Urine Nitrite Negative (Negative) Urine Bilirubin Negative (Negative) Urine Urobilinogen Normal mg/dL (Negative) Urine Leukocyte Esterase Negative /uL (Negative) Urine RBC None seen /hpf (0 - 3) Urine Microscopic WBC < 1 /HPF (0-3) Urine Squamous Epithelial Cells None seen /hpf (<5) Urine Bacteria None seen /hpf (None Seen) Urine Glucose Normal mg/dL (Normal) Urine Opiates Screen Neg (NEGATIVE) Urine Fentanyl Screen Neg (NEGATIVE) Urine Barbiturates Screen Neg (NEGATIVE) Urine Phencyclidine Screen Neg (NEGATIVE) Urine Amphetamines Screen Neg (NEGATIVE) Urine Benzodiazepines Screen Neg (NEGATIVE) Urine Cocaine Screen Neg (NEGATIVE) Urine Cannabinoids Screen Neg (NEGATIVE) Lipase 46 U/L (12-53) Other Laboratory Tests 02/02/25 08:17 Brief Hx & Hospital Course: 24-year-old male with a history of Crohn's disease complaining of abdominal pain nausea and vomiting. CT abdomen pelvis without contrast shows no acute appendicitis mild mesenteric adenitis treated with Rocephin Flagyl pantoprazole and Zofran feels better vital signs are stable afebrile discharged home on Levaquin and Flagyl Intractable abdominal pain with nausea and vomiting Acute gastroenteritis: Rocephin Flagyl pantoprazole Zofran History of Crohn's disease Consults/Reason for consult none Operations or Procedures CT abdomen pelvis without contrast Condition at Discharge: Fair Final Diagnosis/Problems List Intractable abdominal pain with nausea and vomiting Acute gastroenteritis: Rocephin Flagyl pantoprazole Zofran History of Crohn's disease Discharge Disposition: Home Discharge Instruct/Medications Diet: Regular Activity: Light activity Follow Up/Referral: Follow up with the primary Dr in 3-4 days Medications: Flagyl Lev[facility]quin [facility] Cephalexin (Keflex Capsule), 1 CAP PO BID Ciprofloxacin Hcl (Cipro), 500 MG PO BID Ciprofloxacin Hcl (Cipro), 1 TAB PO BID Cyanocobalamin (B12), 1,000 MCG PO DAILY Dicyclomine Hcl (Bentyl Capsule), 1 CAP PO Q6HPRN Ergocalciferol (Vitamin D 22302 Unit), 50,000 UNIT PO Q7D Levofloxacin Hemihydrate (Levaquin 500 Mg), 1 TAB PO DAILY Metronidazole (Flagyl), 1 TAB PO TID Metronidazole (Flagyl), 1 TAB PO BID Metronidazole (Flagyl), 1 TAB PO TID Pantoprazole Sodium Sesquihydr (Protonix), 40 MG PO DAILY Scheduled PRN Dicyclomine Hcl (Dicyclomine Hcl), 1 TAB PO TID PRN Ibuprofen (Ibuprofen), 1 TAB PO Q6HP PRN 35 (Time taken for discharge summary 35 mts) Discharge Statement: "Patient was advised to return to the ER or call 911 if any headaches, dizziness, shortness of breath, chest pain, abdominal pain, bleeding, fevers, or worsening of medical condition. Patient was counseled about treatment plan, medications, possible side effects, patientverbalized understanding. All questions were answered to the best of my ability. This discharge took greater then 30 minutes in planning, reviewing documentation, counseling the patient, and discussing with other team members." ASSESSMENT ASSESSMENT Assessment Intractable abdominal pain with nausea and vomiting Acute gastroenteritis: Rocephin Flagyl pantoprazole Zofran History of Crohn's disease Date of Service: Feb 03, 2025 Billing Provider: JIGNESH RODAS MD Common Visit Codes: 69789-CGK/OBS DISCH DAY >30min JIGNESH RODAS MD Feb 03, 2025 10:10
[2025-02-03 12:18] VITALS: BP 111/70; PULSE 73; RESP 16; TEMP 97.8; O2SAT 95
[2025-02-03 13:00] VITALS: BP 108/67; PULSE 74; RESP 16; TEMP 98.1; O2SAT 97
== END 2025-02-03 12:54 | disposition home or self-care (01) | DRG 248 ==
LOC: ER 03:10 → OVERFLOW 08:02 → EAST 09:15
DX: A04.9 Bacterial intestinal infection, unspecified (principal); E86.0 Dehydration; K50.90 Crohn's disease, unspecified, without complications; I88.0 Nonspecific mesenteric lymphadenitis; F17.290 Nicotine dependence, other tobacco product, uncomplicated; Z82.61 Family history of arthritis; Z83.3 Family history of diabetes mellitus; Z79.899 Other long term (current) drug therapy; Z79.2 Long term (current) use of antibiotics; Z79.1 Long term (current) use of non-steroidal anti-inflammatories (NSAID)
CPT/HCPCS: 36415; 74177; 80053; 80307; 81001; 83690; 85025; 87070; 87880; 96361; 96365; 96368; G0378; J2470; J3490

== ENCOUNTER 2025-02-22 14:51 | Emergency (ER) | payer MEDICAID ==
[~2025-02-22] VITALS: Ht 167.6 cm; Wt 69.5 kg
[~2025-02-22 14:51] MED LIST changes: +LEVO500T91 PO
[2025-02-22] MEDS: SODIUM CHLORIDE 0.9% 1,000 ML IVB ONE (15:30)
[2025-02-22] MEDS: ONDANSETRON HCL 4 MG/2 ML VIAL IV ONE (15:30)
[2025-02-22] MEDS: MORPHINE SULFATE 4 MG/ML SYR/VIAL IV ONE (15:30)
--- NOTE | 2025-02-22 15:36 | ED.PDOC ---
GI ASSESSMENT HPI Comments 25 y/o M, presents to the ED for CC of abdominal pain. Patient states, he has been experiencing RLQ abdominal pain with associated constipation x2days. Patient reports, recently finishing a course of [id number] antibiotics for Dx:diverticulitis. Patient denies nausea, vomiting, diarrhea, fever, or chills. No other symptoms or modifying factors are present at this time. Chief Complaint: Abdominal Pain Time Seen by MD: 15:30 Primary Care Provider: Padmaja Armstrong Notes: Nurses Notes, Medications, Allergies Allergies: Coded Allergies: NO KNOWN ALLERGIES (Unverified , 07/23/12) Home Meds Active Scripts Tramadol Hcl (Tramadol Hcl) 50 Mg Tab, 50 MG PO Q8HP PRN for 5 Days, #15 TAB Prov:MEENA ROSARIO MD 02/22/25 Levofloxacin Hemihydrate (LEVAQUIN 500 MG) 500 Mg Tab, 1 TAB PO DAILY, #10 TAB Prov:JIGNESH RODAS MD 02/03/25 Metronidazole (Flagyl) 500 Mg Tab, 1 TAB PO TID, #20 TAB Prov:JIGNESH RODAS MD 02/03/25 Metronidazole (Flagyl) 500 Mg Tab, 1 TAB PO BID, #14 TAB Prov:FELY PRECIADO 12/22/24 Ciprofloxacin Hcl (Cipro) 500 Mg Tab, 1 TAB PO BID, #20 TAB Prov:FELY PRECIADO 12/22/24 Ciprofloxacin Hcl (Cipro) 500 Mg Tab, 500 MG PO BID for 7 Days, #14 TAB Prov:DEBO WILSON DO 11/20/24 Dicyclomine Hcl (BENTYL CAPSULE) 10 Mg Cp, 1 CAP PO Q6HPRN, #20 CAP 0 Refills Prov:CORBY SWANN PAC 09/02/24 Ibuprofen (Ibuprofen) 600 Mg Tab, 1 TAB PO Q6HP PRN, #20 TAB Prov:CORBY SWANN PAC 09/02/24 Pantoprazole Sodium Sesquihydr (Protonix) 40 Mg Tab, 40 MG PO DAILY for 5 Days, #5 TAB Prov:CHILO BURGESS MD 05/08/24 Dicyclomine Hcl (Dicyclomine Hcl) 20 Mg Tab, 1 TAB PO TID PRN, #30 TAB 1 Refill Prov:ROSEMARY BLOUNT 03/06/24 Metronidazole (Flagyl) 500 Mg Tab, 1 TAB PO TID for 5 Days, #15 TAB Prov:OCTAVIO ZAVALA RESIDENT 12/17/23 Cephalexin (KEFLEX CAPSULE) 250 Mg Cp, 1 CAP PO BID for 5 Days, #28 CAP Prov:OCTAVIO ZAVALA 12/17/23 Cyanocobalamin (B12) 1,000 Mcg Cap, 1000 MCG PO DAILY for 30 Days, #30 CAP 2 Refills Prov:OCTAVIO ZAVALA 12/17/23 Ergocalciferol (VITAMIN D 66134 UNIT) 50,000 [place], [address] UNIT PO Q7D for 90 Days, #12 CAP Prov:OCTAVIO ZAVALA [facility] 12/17/23 Information Source: Patient Mode of Arrival: Ambulatory Timing: Days Duration: Since onset Prehospital treatment: None Vomitus: None Stool: Impaction Severity: Moderate Recent: Antibiotics Recent Hx of: None Pain Location: RLQ Modifying Factors: Nothing Associated sign and symptoms: Constipation, Abdominal Pain Past Medical History PAST MEDICAL HISTORY: Denies Surgical History: Denies all surgeries Family History Family History: Reviewed,noncontributory to illness, Unknown Social History Smoker: Other Alcohol: Rarely Drugs: Denies Drug Use Lives In: Home Constitutional: denies: chills, diaphoresis, fatigue, fever, malaise, sweats, weakness, others EENTM: denies: blurred vision, double vision, ear bleeding, ear discharge, ear drainage, ear pain, ear ringing, eye pain, eye redness, hearing loss, mouth pain, mouth swelling, nasal discharge, nose bleeding, nose congestion, nose pain, photophobia, tearing, throat pain, throat swelling, voice changes, others Respiratory: denies: cough, hemoptysis, orthopnea, SOB at rest, shortness of breath, SOB with excertion, stridor, wheezing, others Cardiovascular: denies: chest pain, dizzy spells, diaphoresis, Dyspnea on exertion, edema, irregular heart beat, left arm pain, lightheadedness, palpitations, PND, syncope, others Gastrointestinal: reports: abdominal pain, constipated; denies: abdomen distended, blood streaked bowels, diarrhea, dysphagia, difficulty swallowing, hematemesis, melena, nausea, poor appetite, poor fluid intake, rectal bleeding, rectal pain, vomiting, others Genitourinary: denies: burning, dysuria, flank pain, frequency, hematuria, incontinence, penile discharge, penile sore, pain, testicle pain, testicle swelling, urgency, others Neurological: denies: dizziness, fainting, headache, left sided numbness, left sided weakness, numbness, paresthesia, pre-existing deficit, right sided numbness, right sided weakness, seizure, speech problems, tingling, tremors, weakness, others Musculoskeletal: denies: back pain, gout, joint pain, joint swelling, muscle pain, muscle stiffness, neck pain, others Integumetry: denies: bruises, change in color, change in hair/nails, dryness, laceration, lesions, lumps, rash, wounds, others Allergic/Immunocompromised: denies: Difficulty Healing, Frequent Infections, Hives, Itching, others Hematologic/Lymphatic: denies: anemia, blood clots, easy bleeding, easy bruising, swollen glands, others Endocrine: denies: excessive hunger, excessive sweating, excessive thirst, excessive urination, flushing, intolerance to cold, intolerance to heat, unexplained weight gain, unexplained weight loss, others Psychiatric: denies: anxiety, bipolar disorder, depression, hopeless, panic disorder, schizophrenia, sleepless, suicidal, others All Other Systems: Reviewed and Negative Physical Exam General Appearance: No Apparent Distress HEENT: Normal ENT Inspection, Pharynx Normal, TMs Normal Neck: Full Range of Motion, Non-Tender, Normal, Normal Inspection Respiratory: Chest Non-Tender, Lungs Clear, No Accessory Muscle Use, No Respiratory Distress, Normal Breath Sounds Cardiovascular: No Edema, No JVD, No Murmur, No Gallop, Normal Peripheral Pulses, Regular Rate/Rhythm Breast Exam: Deferred Gastrointestinal: No Organomegaly, Non Tender, No Pulsatile Mass, Normal Bowel Sounds, Soft Genitalia: Deferred Pelvic: Deferred Rectal: Deferred Extremities: No calf tenderness, Normal capillary refill, Normal inspection, Normal range of motion, Non-tender, No pedal edema Musculoskeletal : Apperance: Normal 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 Was a procedure done?: No GI differential Dx Differential Diagnosis: Constipation, Diverticular disease, Inflammatory BD X-Ray, Labs, Meds, VS Vital Signs Date Time Temp Pulse Resp B/P (MAP) Pulse Ox O2 Delivery O2 Flow Rate FiO2 02/22/25 14:52 97.6 63 18 137/82 99 97.6 Lab Test 02/22/25 15:33 Range/Units White Blood Count 5.2 4.4-10.8 10^3/uL Red Blood Count 5.53 4.5-5.90 10^6/uL Hemoglobin 15.9 13.5-17.5 g/dL Hematocrit 46.9 41.0-53.0 % Mean Corpuscular Volume 84.8 80.0-100.0 fL Mean Corpuscular Hemoglobin 28.8 28.0-32.0 pg Mean Corpuscular Hemoglobin Concent 33.9 32.0-36.0 g/dL Red Cell Distribution Width 12.6 11.8-14.3 % Platelet Count 263 140-450 10^3/uL Mean Platelet Volume 8.6 6.9-10.8 fL Neutrophils (%) (Auto) 55.0 37.0-80.0 % Lymphocytes (%) (Auto) 32.2 10.0-50.0 % Monocytes (%) (Auto) 9.9 0.0-12.0 % Eosinophils (%) (Auto) 2.1 0.0-7.0 % Basophils (%) (Auto) 0.8 0.0-2.0 % Neutrophils # (Auto) 2.8 1.6-8.6 10 ^3/uL Lymphocytes # (Auto) 1.7 0.4-5.4 10 ^3/uL Monocytes # (Auto) 0.5 0-1.3 10 ^3/uL Eosinophils # (Auto) 0.1 0-0.8 10 ^3/uL Basophils # (Auto) 0 0-0.2 10 ^3/uL Nucleated Red Blood Cells 0.1 % Sodium Level 140 136-145 mmol/L Potassium Level 3.9 3.5-5.1 mmol/L Chloride Level 103 98-107 mmol/L Carbon Dioxide Level 28 20-31 mmol/L Anion Gap 9 5-15 Blood Urea Nitrogen < 5 L 9-23 mg/dL Creatinine 0.91 0.700-1.30 mg/dL Glomerular Filtration Rate Calc 119 >90 mL/min BUN/Creatinine Ratio 5.5 L 10.0-20.0 Serum Glucose 89 74-106 mg/dL Calcium Level 9.9 8.7-10.4 mg/dL Total Bilirubin 0.9 0.2-1.0 mg/dL Aspartate Amino Transferase (AST) 55 H 13-40 U/L Alanine Aminotransferase (ALT) 118 H 7-40 U/L Alkaline Phosphatase 75 46-116 U/L Total Protein 7.4 5.7-8.2 g/dL Albumin 4.7 3.2-4.8 g/dL Lipase 38 12-53 U/L CT ABD PEL: FINDINGS: Limited evaluation of the solid organs in the absence of IV contrast. Lungs: The lung bases are clear. Liver: Unremarkable. Spleen: Small splenule. Pancreas: Unremarkable. Gallbladder: Unremarkable. Adrenals: Unremarkable Kidneys: Unremarkable. Pelvic Viscera: Unremarkable. Vasculature: Unremarkable. Retroperitoneum: Scattered subcentimeter lymph nodes are seen. Bowel: No bowel obstruction. Portions of the bowel are decompressed, limiting assessment. There is submucosal fat deposition within the wall of the colon which may reflect chronic inflammation. The appendix is normal. Musculoskeletal: Unremarkable. Soft tissues: Unremarkable IMPRESSION: 1. Scattered subcentimeter lymph nodes may reflect mesenteric adenitis in the appropriate clinical setting. 2. Additional findings as detailed. Time of 1ST Reevaluation: 16:00 Reevaluation 1ST: Unchanged Patient Education/Counseling: Diagnosis, Treatment, Prognosis, Need For Follow Up Family Education/Counseling: No Family Present SEPSIS Sepsis Screen Date sepsis recognized/suspect: Feb 22, 2025 Time Sepsis recognized/suspect: 4 Recent Procedure: No On Antibiotic Therapy: No Respiratory Rate >20: No Heart Rate >90: No Temp<36 C (96.8 F) or >38.3 C: No SBP <90 or MAP <65 mmHG: No New Acute Mental Status Change: No Is the patient on CPAP, BIPAP,: No Physician Orders Urinalysis (02/22/25 15:27) Sodium Chloride 0.9% (02/22/25 15:30) Ct Ab Pel Wo Con-No Oral Or Iv (02/22/25 15:27) Heplock Iv (02/22/25 15:27) Vital Signs Date Time Temp Pulse Resp B/P (MAP) Pulse Ox O2 Delivery O2 Flow Rate FiO2 02/22/25 14:52 97.6 63 18 137/82 99 97.6 Laboratory Tests Test 02/22/25 15:33 White Blood Count 5.2 10^3/uL (4.4-10.8) Departure 1 Departure Time of Disposition: 16:28 Impression: Primary Impression: Abdominal pain Qualified Codes: R10.9 - Unspecified abdominal pain Disposition: HOME / SELF CARE / HOMELESS Condition: Fair e-Prescriptions Tramadol Hcl (Tramadol Hcl) 50 Mg Tab 50 MG PO Q8HP PRN for 5 Days, #15 TAB Prov: MEENA ROSARIO MD 02/22/25 Discharged With: Self Critical Care Note Critical Care Time?: No Stability Stability form required: No Heart Score Heart Score: Heart Score Response (Comments) Value History N/A 0 EKG N/A 0 Age N/A 0 Risk Factors N/A 0 Troponin N/A 0 Total 0 I personally scribed for MEENA ROSARIO MD ([email or web address]) on 02/22/25 at 15:36. El ectronically submitted by Deepa Stockton [email or web address]). I personally scribed for MEENA ROSARIO MD ([email or web address]) on 02/22/25 at 16:23. Rosibel ctronically submitted by Deepa Stockton [email or web address]). MEENA ROSARIO MD Feb 22, 2025 15:36
[2025-02-22 16:00] VITALS: PULSE 85; RESP 15; O2SAT 99
[2025-02-22 16:00] LABS: Hematocrit 46.9 % (41.0-53.0); Hemoglobin 15.9 g/dL (13.5-17.5); Mean Corpuscular Hemoglobin 28.8 pg (28.0-32.0); Mean Corpuscular Volume 84.8 fL (80.0-100.0); Nucleated Red Blood Cells % 0.1 %
[2025-02-22 16:17] LABS: Albumin 4.7 g/dL (3.2-4.8); Alkaline Phosphatase 75 U/L (46-116); Anion Gap 9 (5-15); Calcium 9.9 mg/dL (8.7-10.4); Carbon Dioxide 28 mmol/L (20-31); Chloride 103 mmol/L (98-107); Glucose 89 mg/dL (74-106); Lipase 38 U/L (12-53); Potassium 3.9 mmol/L (3.5-5.1); Sodium 140 mmol/L (136-145); Total Protein 7.4 g/dL (5.7-8.2)
[2025-02-22 16:18] LABS: Alanine Aminotransferase 118 U/L (7-40); BUN/Creatinine Ratio 5.5 (10.0-20.0); Bilirubin, Total 0.9 mg/dL (0.2-1.0); Blood Urea Nitrogen < 5 mg/dL (9-23)
--- NOTE | 2025-02-22 16:19 | DVH ---
EXAM: CT CT AB PEL WO CON-NO ORAL OR IV HISTORY: abd pain COMPARISON STUDY: CT CT AB PEL WO CON-NO ORAL OR IV on DOS: 12/22/24, CT CT AB PEL WO CON-NO ORAL OR IV on DOS: 11/20/24, CT CT AB PEL WO CON-NO ORAL OR IV on DOS: 03/06/24, CT CT AB PEL WO CON-NO ORAL OR IV on DOS: 12/15/23 TECHNIQUE: Multidetector CT of the abdomen and pelvis was performed from lung bases to pubic symphysis. Imaging was performed without IV contrast. Axial, coronal, and sagittal multiplanar reformats were obtained from the axial data set by the technologist. RADIATION DOSE: CTDI vol 6.4 mGy. DLP 340.4 mGy.cm FINDINGS: Limited evaluation of the solid organs in the absence of IV contrast. Lungs: The lung bases are clear. Liver: Unremarkable. Spleen: Small splenule. Pancreas: Unremarkable. Gallbladder: Unremarkable. Adrenals: Unremarkable Kidneys: Unremarkable. Pelvic Viscera: Unremarkable. Vasculature: Unremarkable. Retroperitoneum: Scattered subcentimeter lymph nodes are seen. Bowel: No bowel obstruction. Portions of the bowel are decompressed, limiting assessment. There is submucosal fat deposition within the wall of the colon which may reflect chronic inflammation. The appendix is normal. Musculoskeletal: Unremarkable. Soft tissues: Unremarkable IMPRESSION: 1. Scattered subcentimeter lymph nodes may reflect mesenteric adenitis in the appropriate clinical setting. 2. Additional findings as detailed.
[2025-02-22] MEDS ORDERED: TRAM50TA2 PO (16:25)
[2025-02-22 17:07] LABS: Urine Protein, UAD Negative (Negative)
[2025-02-22 17:22] VITALS: BP 116/82; PULSE 64; RESP 16; TEMP 97.6; O2SAT 97
== END 2025-02-22 17:24 | disposition home or self-care (01) ==
LOC: ER 14:51
DX: R10.31 Right lower quadrant pain (principal); F17.200 Nicotine dependence, unspecified, uncomplicated; Z79.899 Other long term (current) drug therapy
CPT/HCPCS: 36415; 74176; 80053; 81001; 83690; 85025; J2405